=== PATIENT | male | born 1975 | race Caucasian/White ===

== ENCOUNTER → 2016-08-31 | Outpatient (CLI) | payer BC ==
[2016-08-31 20:19] LABS: Basophils % (A) 0 %; CHCM 34.5; Eosinophils # (A) 0.1 k/uL (0-0.7); Eosinophils % (A) 2 %; HDW 2.33; Luc % (Auto) 1; Lymphocytes # (A) 1.7 k/uL (1.0-4.8); Lymphocytes % (A) 23 %; MCH 30.8 pg (25.0-35.0); MCHC 34.1 g/dL (31.0-37.0); MCV 90.4 fL (80.0-100.0); Mean Platelet Volume 7.5; Monocytes # (A) 0.4 k/uL (0-1.0); Monocytes % (A) 6 %; Neutrophils # (A) 5.2 k/uL (1.3-7.7); Neutrophils % (A) 68 %; RBC 4.53 m/uL (4.30-5.90); RDW 13.5 % (11.5-15.5); WBC 7.6 k/uL (3.8-10.6); WBC (Perox) 7.91
[2016-08-31 20:33] LABS: ALT 36 U/L (21-72); AST 29 U/L (17-59); Alkaline Phosphatase 77 U/L (38-126); Anion Gap 11 mmol/L; Blood Urea Nitrogen 20 mg/dL (9-20); Calcium 9.4 mg/dL (8.4-10.2); Carbon Dioxide 27 mmol/L (22-30); Chloride 99 mmol/L (98-107); Cholesterol 129 mg/dL (<200); Glucose 100 mg/dL (74-99); HDL Cholesterol 64 mg/dL (40-60); Non-African American GFR(MDRD) >60 (>60 ml/min/1.73 sqM); Potassium 4.1 mmol/L (3.5-5.1); Sodium 137 mmol/L (137-145); Total Bilirubin 0.4 mg/dL (0.2-1.3); Total Protein 6.7 g/dL (6.3-8.2); Triglycerides 120 mg/dL (<150)
== END ==
LOC: MMGSC 16:40
PROVIDERS: ATTEND Family Medicine
DX: E03.9 Hypothyroidism, unspecified (principal); I10 Essential (primary) hypertension
CPT/HCPCS: 36415; 80053; 80061; 84439; 84443; 85025

== ENCOUNTER → 2017-10-23 | Outpatient (CLI) | payer BC ==
[2017-10-23 07:45] LABS: ALT 32 U/L (21-72); AST 26 U/L (17-59); Albumin 4.5 g/dL (3.5-5.0); Alkaline Phosphatase 59 U/L (38-126); Anion Gap 6 mmol/L; Blood Urea Nitrogen 22 mg/dL (9-20); Calcium 9.7 mg/dL (8.4-10.2); Carbon Dioxide 29 mmol/L (22-30); Chloride 101 mmol/L (98-107); Cholesterol 194 mg/dL (<200); Glucose 107 mg/dL (74-99); HDL Cholesterol 73 mg/dL (40-60); LDL Cholesterol,Calculated 99 mg/dL (0-99); Potassium 4.4 mmol/L (3.5-5.1); Sodium 136 mmol/L (137-145); Total Bilirubin 0.4 mg/dL (0.2-1.3); Total Protein 7.2 g/dL (6.3-8.2); Triglycerides 109 mg/dL (<150)
[2017-10-23 07:55] LABS: T4, Free (Free Thyroxine) 0.24 ng/dL (0.78-2.19)
[2017-10-23 07:58] LABS: Basophils # (A) 0.1 k/uL (0-0.2); Basophils % (A) 1 %; Eosinophils # (A) 0.1 k/uL (0-0.7); Eosinophils % (A) 1 %; HGB 14.7 gm/dL (13.0-17.5); Lymphocytes # (A) 1.8 k/uL (1.0-4.8); Lymphocytes % (A) 20 %; MCH 30.8 pg (25.0-35.0); MCHC 33.5 g/dL (31.0-37.0); Mean Platelet Volume 6.9; Monocytes # (A) 0.5 k/uL (0-1.0); Monocytes % (A) 6 %; Neutrophils # (A) 6.2 k/uL (1.3-7.7); Neutrophils % (A) 71 %; Platelet Count 239 k/uL (150-450); RBC 4.78 m/uL (4.30-5.90); RDW 13.8 % (11.5-15.5); WBC 8.8 k/uL (3.8-10.6)
== END | disposition home or self-care (01) ==
LOC: LABWHC1 06:40
PROVIDERS: ATTEND Family Medicine
DX: Z00.00 Encounter for general adult medical examination without abnormal findings (principal)
CPT/HCPCS: 36415; 80053; 80061; 84439; 84443; 85025

== ENCOUNTER → 2019-05-29 | Outpatient (CLI) | payer BC ==
--- NOTE | 2019-05-29 20:03 | CONS ---
CONSULTATION DATE OF SERVICE: 05/29/2019 This patient is a 43-year-old gentleman who has been evaluated in the sleep center for possible obstructive sleep apnea-hypopnea syndrome. HISTORY OF PRESENT ILLNESS/SLEEP-WAKE EVALUATION: Patient usually goes to bed around 8 or 9 or 10 p.m. and gets up in the morning around 5:15 a.m. on working days and around 8 or 9 a.m. on weekends. No problems with falling asleep, although he has a TV set in the bedroom. He sleeps in different positions with loud snoring and witnessed episodes of stopped breathing during sleep by his . He wakes up from sleep up to 5 times with up 3 episodes of nocturia. He moves his legs during the night and has symptoms of restless legs and also kicking at night. In the morning patient wakes up tired, may feel sleepy during the day. He takes a nap around 3 or 5 p.m. Aline Sleepiness Scale is significantly increased at 13. No history of hypnagogic hallucinations, sleep paralysis or cataplexy. PAST MEDICAL HISTORY: Positive for hypertension, hypothyroidism. PAST SURGICAL HISTORY: Right hip fracture, left hip fracture, left knee surgery. MEDICATIONS: Synthroid, amlodipine. SOCIAL HISTORY: Negative for smoking. Alcohol consumption occasional. FAMILY HISTORY: Hypertension, snoring, diabetes, thyroid problems, and esophageal cancer in his father. REVIEW OF SYSTEMS: Multiple awakenings from sleep, snoring, sleepiness during the day. PHYSICAL EXAMINATION: GENERAL: A pleasant gentleman without distress. VITAL SIGNS: BP 138/85, HR 82, RR 16, height 6 feet 0 inches, weight 288 pounds. Body mass index 38.9. Temperature 98.7, oxygen saturation at room air 99%. HEENT: PERRLA, EOMI. Evaluation of oropharynx showed tongue protrudes midline. Extremely low position of soft palate. Mallampati IV. Some restriction of nasal breathing. NECK: Supple. No JVD. ? thyroid palpable. Wide neck; 18 inches in circumference. LUNGS: Clear to percussion and to auscultation. Good air exchange. No wheezing or rhonchi. HEART: S1, S2 regular. No murmurs, gallops or rubs. ABDOMEN: Obese. EXTREMITIES: No clubbing or cyanosis. IT SYSTEMS MANAGER: Awake, alert, and oriented X3. Cranial nerves 2 to 7 intact. There is no fasciculation or atrophy. noted. No focal deficits observed. IMPRESSION: 1. Loud snoring, witnessed episodes of stopped breathing during sleep, extremely low position of soft palate, Mallampati IV, restriction of nasal breathing, wide neck, sleepiness; obstructive sleep apnea-hypopnea syndrome. 2. History of symptoms of restless legs and kicking at night; possibly periodic limb movement syndrome. 3. Hypothyroidism. 4. Hypertension. 5. Status post right hip fracture. 6. Status post left hip fracture. 7. Status post left knee surgery. PLAN: 1. Home sleep apnea test for evaluation of patient's breathing during sleep. 2. CPAP/BiPAP titration if sleep study confirms obstructive sleep apnea-hypopnea syndrome. 3. Preferable position during sleep on the side. 4. No driving if patient feels any sleepiness. 5. I will see patient for follow up visit to explain results of testing and following plan. Thank you very much for allowing me to participate in the management of your patient. Sincerely, Nathanael Alamo MD, PhD, FAASM Diplomat of [employer] [employer] [facility] [place] MMODL / IJN: [id number] /
== END | disposition home or self-care (01) ==
LOC: SLEEP 14:44
PROVIDERS: ATTEND Internal Medicine
DX: R06.83 Snoring (principal); E03.9 Hypothyroidism, unspecified; I10 Essential (primary) hypertension; Z96.653 Presence of artificial knee joint, bilateral; Z96.652 Presence of left artificial knee joint; Z79.899 Other long term (current) drug therapy
CPT/HCPCS: 99211

== ENCOUNTER → 2020-07-23 | Outpatient (CLI) | payer BC | END | disposition home or self-care (01) | LOC: LABWHC1 16:21 | PROVIDERS: ATTEND Family Medicine | DX: Z20.822 Contact with and (suspected) exposure to COVID-19 (principal) | CPT/HCPCS: U0003; C9803; U0005 ==

== ENCOUNTER 2022-10-14 23:02 | Inpatient (IN) | payer BC, OTHER ==
[2022-10-14] MEDS ORDERED: SODIUM CHLORIDE 0.9% 1,000 ML IV STA (23:27)
[2022-10-14] MEDS ORDERED: THIAMINE 100 MG/ML 2 ML VIAL IM STA (23:29)
[2022-10-14] MEDS ORDERED: LORazepam 2 MG/ML INJ IV STA (23:32)
[2022-10-14] MEDS ORDERED: DIPH,PERTUS(ACELL)TETVAC-LF 0.5 ML VIAL IM ONE (23:36)
--- NOTE | 2022-10-14 23:42 | ED ---
General Adult HPI - General Chief complaint: Alcohol Stated complaint: Alcohol Withdrawl Time Seen by Provider: 10/14/22 23:07 Source: patient, EMS, RN notes reviewed, old records reviewed Mode of arrival: EMS Limitations: no limitations - History of Present Illness Initial comments: Patient is a 47-year-old male with past medical history remarkable for daily alcohol abuse, hypertension, who presents emergency Department after a fall. Patient fell last week as well as recently. His bruising over his forehead and he bit his tongue. States his last was on Sunday and has not been drinking much since. Normally takes a pint of vodka per day. Does endorse a history of alcohol withdrawals. Denies any seizure history. States he is uncertain what made him fall earlier and thinks he may have loss consciousness. He is somewhat confused regarding the fall earlier. States he is having shaking. Has also been having decreased oral intake over the last week or so without any known reason why. Has had less than appetite. Has no other acute complaints at this time. States is not on blood thinners. Denies any obvious injuries from the fall other than his tongue and the forehead bruising. Presents for further evaluation of this time. Denies chest pain, shortness breath, fevers, abdominal pain, nausea, vomiting. - Related Data Allergies Allergy/AdvReac Type Severity Reaction Status Date / Time No Known Allergies Allergy Verified 10/14/22 23:14 Review of Systems ROS Statement: Those systems with pertinent positive or pertinent negative responses have been documented in the HPI. Review of Systems: CONST: Denies fever EYES: Denies blurry vision ENT: Endorses tongue swelling C/V: Denies Chest pain RESP: Denies shortness of breath GI: Denies abdominal pain : Denies dysuria SKIN: Endorses facial pain MSK: Denies joint pain. NEURO: Denies headache ROS Other: All systems not noted in ROS Statement are negative. Past Medical History Past Medical History: Hypertension, Thyroid Disorder History of Any Multi-Drug Resistant Organisms: None Reported Past Surgical History: Orthopedic Surgery Additional Past Surgical History / Comment(s): ankle and knee surgery. Past Psychological History: Anxiety Smoking Status: Former smoker Past Alcohol Use History: Abuse, Daily Past Drug Use History: Marijuana General Exam - General Exam Comments Initial Comments: General: Appears in active alcohol withdrawals with tremors and tongue fasciculations. HEAD: Oozing over the forehead. No obvious hematoma or other injury. No step- offs or deformities of the face. Negative ragland sign. Negative raccoon eyes. EYES: PERRLA, EOMI, conjunctiva normal, no discharge. Pupils 3 mm equal bilaterally. ENT: Hearing grossly intact. Patient has left-sided tongue edema secondary to him biting it. Small abrasion as well. RESPIRATORY: Clear breath sounds bilaterally. No wheezes, rales, or rhonchi. C/V: Mild tachycardia with regular rhythm. S1 and S2 auscultated, no edema, peripheral pulses 2+ and intact throughout ABD: Abd is soft, nontender, nondistended EXT: Normal range of motion, no obvious deformity. No midline spinal tenderness palpation of the cervical, thoracic, lumbar spines. Pelvis is stable. No obvious tenderness to palpation of the extremities. SKIN: No rashes or lesions observed on exposed skin. NEURO: Alert and oriented x 4. Cranial nerves II-XII intact. No focal sensory or strength deficits. Patient does have tongue fasciculations and generalized tremors. CIWA is 9-10. Limitations: no limitations Course Vital Signs 10/14/22 10/15/22 10/15/22 23:05 00:14 01:00 Temperature 97.8 F Pulse Rate 105 H 92 92 Respiratory 18 18 18 Rate Blood Pressure 153/114 147/111 148/109 O2 Sat by Pulse 98 99 99 Oximetry Medical Decision Making - Medical Decision Making Was pt. sent in by a medical professional or institution (Dr. PA, [facility], urgent care, hospital, or senior care...) When possible be specific @ -No Did you speak to anyone other than the patient for history (EMS, parent, family, police, friend...)? What history was obtained from this source @ -No Did you review nursing and triage notes (agree or disagree)? Why? @ -I reviewed and agree with nursing and triage notes Were old charts reviewed (outside hosp., previous admission, EMS record, old EKG, old radiological studies, urgent care reports/EKG's, senior care records)? Report findings @ -No old charts were reviewed Differential Diagnosis (chest pain, altered mental status, abdominal pain women, abdominal pain men, vaginal bleeding, weakness, fever, dyspnea, syncope, headache, dizziness, GI bleed, back pain, seizure, CVA, palpatations, mental health, musculoskeletal)? @ -Fall, intracranial injury, alcohol withdrawals, alcohol withdrawal seizure, syncopal episode, mechanical fall, dehydration, infection. This list is not all-inclusive. EKG interpreted by me (3pts min.). @ -As above X-rays interpreted by me (1pt min.). @ -Chest x-rays reveal no obvious deformity, pneumothorax. Radiology does see possible left sixth rib abnormality but the patient has no pain at the site. Pelvis x-ray reveals no obvious acute traumatic injury. CT interpreted by me (1pt min.). @ -Face CT shows no obvious acute fracture of the facial bones. CT brain reveals no obvious intracranial injury. Cervical spine CT does reveal anterior corner fractures involving the anterior and inferior endplates of third and fourth vertebral bodies as well as possible C6 fracture as well in the right lamina. Patient also has nondisplaced posterior medial right first and second rib fractures. Radiology corroborated these findings. U/S interpreted by me (1pt. min.). @ -None done What testing was considered but not performed or refused? (CT, X-rays, U/S, labs)? Why? @ -None What meds were considered but not given or refused? Why? @ -Offered analgesic medications which were declined as the patient is not in any acute pain. Did you discuss the management of the patient with other professionals (professionals i.e. , PA, [facility], lab, RT, psych nurse, transition social worker, chief commercial officer, teacher, liaison officer, case preparer and liner)? Give summary @ -I spoke with orthopedic surgery, Dr. Orellana who accepted the consult but due to the patient's alcohol withdrawals requested patient be made a medicine admission and they be a consult which I believe is reasonable. Was in agreement with the plan for cervical collar. I discussed the case with Dr. Zamarripa who accepted the admission. Was smoking cessation discussed for >3mins.? @ -No Was critical care preformed (if so, how long)? @ -Yes, 35 minutes. Were there social determinants of health that impacted care today? How? (Homelessness, low income, unemployed, alcoholism, drug addiction, transport ation, low edu. Level, literacy, decrease access to med. care, correction, rehab)? @ -No Was there de-escalation of care discussed even if they declined (Discuss DNR or withdrawal of care, Hospice)? DNR status @ -No What co-morbidities impacted this encounter? (DM, HTN, Smoking, COPD, CAD, Cancer, CVA, ARF, Chemo, Hep., AIDS, mental health diagnosis, sleep apnea, morbid obesity)? @ -None Was patient admitted / discharged? Hospital course, mention meds given and route, prescriptions, significant lab abnormalities, going to OR and other pertinent info. @ -Based on the patient's presentation and physical exam, and it does appear he is going through alcohol withdrawals. Had a fall at home of unknown etiology. Patient does not meet criteria for trauma activation. We will obtain syncopal workup as well as lactic acid to evaluate for signs of possible seizure that he may have had. We also obtain CT imaging the brain, C-spine, facial bones. Tetanus will be updated. He will receive a liter fluid. He will receive 1 mg of IV Ativan for his alcohol withdrawal symptoms. He was in agreement this plan. Bowel sounds are remarkable for mild tachycardia but otherwise within acceptable limits. EKG showed no signs of acute ischemia. Patient's imaging returned remarkable for no acute intracranial injury, pelvis injury the patient does have some nondisplaced rib fractures which are nontender on palpation. Patient also has cervical spine corner fractures at C3, C4, and possible fracture of the C6 right lamina. I reevaluated the patient and he has no pain in his cervical spine but he will have a rigid cervical collar placed. He has no neuro deficits at this time. Following the Ativan his withdrawal symptoms are improved. Patient was placed in a cervical collar. He has no pain in his cervical spine or at the location of the rib fractures at this time. Declines analgesic medications. Patient's labs returned remarkable for a thrombocytopenia of 77 likely related to his chronic condition. Mild dehydration with an elevated lactic acid of 2.8, sodium of 1:30, clear to 93 which were decreased. Mildly elevated bilirubin of 1.7 as well as LFTs secondary to alcohol abuse. Serum alcohol is undetectable. Viral swabs negative. I updated the patient. He remains in a cervical collar at this time. I discussed she will be admitted for alcohol withdrawals. He was in agreement with this plan. I discussed the case initially with Dr. Orellana of orthopedics due to the cervical spine injury as well as the rib fractures. Was in agreement that is the patient has no symptoms related to the rib fractures just to monitor at this time. In terms of the cervical fracture, was in agreement with the cervical collar and patient remaining here but he did request an admission to medicine as the patient has alcohol withdrawals which I believe is reasonable at this time. I spoke with the medicine attending manager relationship for the [facility], Dr. Zamarripa who accepted the patient. Patient admitted in stable condition. Undiagnosed new problem with uncertain prognosis? @ -No Drug Therapy requiring intensive monitoring for toxicity (Heparin, Nitro, Insulin, Cardizem)? @ -No Were any procedures done? @ -No Diagnosis/symptom? @ -Fall, anterior corner fractions of C4 and C3, possible fractures right lamina C6, right-sided nondisplaced rib fractures Acute, or Chronic, or Acute on Chronic? @ -Acute Uncomplicated (without systemic symptoms) or Complicated (systemic symptoms)? @ -Complicated Side effects of treatment? @ -none Exacerbation, Progression, or Severe Exacerbation] @ -no Poses a threat to life or bodily function? @ -Yes Diagnosis/symptom? @ -Alcohol withdrawals Acute, or Chronic, or Acute on Chronic? @ -Acute Uncomplicated (without systemic symptoms) or Complicated (systemic symptoms)? @ -Complicated Side effects of treatment? @ -none Exacerbation, Progression, or Severe Exacerbation] @ -no Poses a threat to life or bodily function? @ -Yes - Lab Data Result diagrams: 10/14/22 23:05 10/14/22 23:05 Lab Results 10/14/22 10/14/22 10/14/22 Range/Units 23:05 23:05 23:05 WBC 4.8 (3.8-10.6) k/uL RBC 3.70 L (4.30-5.90) m/uL Hgb 11.9 L (13.0-17.5) gm/dL Hct 35.6 L (39.0-53.0) % MCV 96.2 (80.0-100.0) fL MCH 32.2 (25.0-35.0) pg MCHC 33.5 (31.0-37.0) g/dL RDW 16.0 H (11.5-15.5) % Plt Count 77 L (150-450) k/uL MPV 9.0 Neutrophils % 84 % Lymphocytes % 9 % Monocytes % 5 % Eosinophils % 1 % Basophils % 0 % Neutrophils # 4.1 (1.3-7.7) k/uL Lymphocytes # 0.4 L (1.0-4.8) k/uL Monocytes # 0.3 (0-1.0) k/uL Eosinophils # 0.0 (0-0.7) k/uL Basophils # 0.0 (0-0.2) k/uL Manual Slide Review Performed Anisocytosis Slight PT 10.3 (9.0-12.0) sec INR 1.0 (<1.2) APTT 22.0 (22.0-30.0) sec Sodium 130 L (137-145) mmol/L Potassium 3.8 (3.5-5.1) mmol/L Chloride 93 L (98-107) mmol/L Carbon Dioxide 26 (22-30) mmol/L Anion Gap 11 mmol/L BUN 13 (9-20) mg/dL Creatinine 1.03 (0.66-1.25) mg/dL Est GFR (CKD-EPI)AfAm >90 (>60 ml/min/1.73 sqM) Est GFR (CKD-EPI)NonAf 87 (>60 ml/min/1.73 sqM) Glucose 200 H (74-99) mg/dL Plasma Lactic Acid Bobby (0.7-2.0) mmol/L Calcium 8.8 (8.4-10.2) mg/dL Magnesium 1.6 (1.6-2.3) mg/dL Total Bilirubin 1.7 H (0.2-1.3) mg/dL AST 92 H (17-59) U/L ALT 51 H (4-49) U/L Alkaline Phosphatase 125 (38-126) U/L Total Protein 6.9 (6.3-8.2) g/dL Albumin 4.2 (3.5-5.0) g/dL Serum Alcohol <10 mg/dL Influenza Type A (PCR) (Not Detectd) Influenza Type B (PCR) (Not Detectd) RSV (PCR) (Not Detectd) SARS-CoV-2 (PCR) (Not Detectd) 10/14/22 10/14/22 Range/Units 23:53 23:53 WBC (3.8-10.6) k/uL RBC (4.30-5.90) m/uL Hgb (13.0-17.5) gm/dL Hct (39.0-53.0) % MCV (80.0-100.0) fL MCH (25.0-35.0) pg MCHC (31.0-37.0) g/dL RDW (11.5-15.5) % Plt Count (150-450) k/uL MPV Neutrophils % % Lymphocytes % % Monocytes % % Eosinophils % % Basophils % % Neutrophils # (1.3-7.7) k/uL Lymphocytes # (1.0-4.8) k/uL Monocytes # (0-1.0) k/uL Eosinophils # (0-0.7) k/uL Basophils # (0-0.2) k/uL Manual Slide Review Anisocytosis PT (9.0-12.0) sec INR (<1.2) APTT (22.0-30.0) sec Sodium (137-145) mmol/L Potassium (3.5-5.1) mmol/L Chloride (98-107) mmol/L Carbon Dioxide (22-30) mmol/L Anion Gap mmol/L BUN (9-20) mg/dL Creatinine (0.66-1.25) mg/dL Est GFR (CKD-EPI)AfAm (>60 ml/min/1.73 sqM) Est GFR (CKD-EPI)NonAf (>60 ml/min/1.73 sqM) Glucose (74-99) mg/dL Plasma Lactic Acid Bobby 2.8 H* (0.7-2.0) mmol/L Calcium (8.4-10.2) mg/dL Magnesium (1.6-2.3) mg/dL Total Bilirubin (0.2-1.3) mg/dL AST (17-59) U/L ALT (4-49) U/L Alkaline Phosphatase (38-126) U/L Total Protein (6.3-8.2) g/dL Albumin (3.5-5.0) g/dL Serum Alcohol mg/dL Influenza Type A (PCR) Not Detected (Not Detectd) Influenza Type B (PCR) Not Detected (Not Detectd) RSV (PCR) Not Detected (Not Detectd) SARS-CoV-2 (PCR) Not Detected (Not Detectd) - EKG Data -: EKG Interpreted by [place] EKG Comments: 12-lead Electrocardiogram Interpretation Note EKG was reviewed and interpreted by myself. 12-lead ECG performed at 2310 is interpreted by me as revealing sinus tachycardia at a rate of 102 beats per minute. [place] is normal. UT interval is 163 ms, QRS duration is 94 ms, QTc is 430 ms.. There were no ST or T wave abnormalities to suggest myocardial ischemia or injury. R wave progression across the precordium was satisfactory. By my interpretation this EKG is non-diagnostic for acute ischemia. Critical Care Time Critical Care Time: Yes Total Critical Care Time: 35 Disposition Clinical Impression: Alcohol withdrawal, Dehydration, Cervical spine fracture, Fall, Rib fractures Disposition: ADMITTED IP TO THIS HOSP Condition: Stable Referrals: Amena Costello [Nurse Contract Administration Specialist] - 1-2 days Time of Disposition: 01:18
[2022-10-15 00:20] LABS: AST 92 U/L (17-59); African American GFR (CKD) >90 (>60 ml/min/1.73 sqM); Albumin 4.2 g/dL (3.5-5.0); Alcohol <10 mg/dL; Alkaline Phosphatase 125 U/L (38-126); Anion Gap 11 mmol/L; Blood Urea Nitrogen 13 mg/dL (9-20); Calcium 8.8 mg/dL (8.4-10.2); Carbon Dioxide 26 mmol/L (22-30); Chloride 93 mmol/L (98-107); Glucose 200 mg/dL (74-99); Magnesium 1.6 mg/dL (1.6-2.3); Non-African American GFR(CKD) 87 (>60 ml/min/1.73 sqM); Potassium 3.8 mmol/L (3.5-5.1); Sodium 130 mmol/L (137-145); Total Bilirubin 1.7 mg/dL (0.2-1.3); Total Protein 6.9 g/dL (6.3-8.2)
--- NOTE | 2022-10-15 00:23 | CT ---
EXAM: CT Head Without Intravenous Contrast CLINICAL HISTORY: Fall. Weakness TECHNIQUE: Axial computed tomography images of the head/brain without intravenous contrast. CTDI is 25.9 mGy and DLP is 755.3 mGy-cm. This CT exam was performed using one or more of the following dose reduction techniques: automated exposure control, adjustment of the mA and/or kV according to patient size, and/or use of iterative reconstruction technique. COMPARISON: No relevant prior studies available. FINDINGS: Brain: No intracranial hemorrhage. No significant mass effect. No significant white matter disease. Ventricles: Unremarkable. No ventriculomegaly. Bones/joints: Unremarkable. No acute fracture. Soft tissues: Subtle superficial scalp contusive changes overlying the left parietal region. No radiopaque foreign body or subcutaneous emphysema. Sinuses: Unremarkable as visualized. No acute sinusitis. Mastoid air cells: Unremarkable as visualized. No mastoid effusion. IMPRESSION: 1. No acute intracranial process identified. 2. Subtle superficial scalp contusive changes overlying the left parietal region. No skull fracture. EXAM: CT Cervical Spine Without Intravenous Contrast CLINICAL HISTORY: Fall. Weakness TECHNIQUE: Axial computed tomography images of the cervical spine without intravenous contrast. CTDI is 20 mGy and DLP is 560.3 mGy-cm. This CT exam was performed using one or more of the following dose reduction techniques: automated exposure control, adjustment of the mA and/or kV according to patient size, and/or use of iterative reconstruction technique. COMPARISON: No relevant prior studies available. FINDINGS: Limitations: There is mild motion artifact, which mildly degrades image quality on multiple image slices. Vertebrae: There are small anterior corner fractures involving the anterior and inferior endplate of the third and fourth vertebral bodies. The avulsion fracture is measured 2 mm at C3 and 3-4 mm at C4 (series 303; images 38-44). The vertebral bodies are otherwise intact. No acute compression fracture. Mild reversal of the normal cervical lordosis No anterolisthesis or retrolisthesis is identified. The facet joints are well aligned without subluxation or dislocation. There is a subtle lucency noted vertically in the right lamina of the C6 left lamina (series 301; images 73-78). The pedicles, transverse processes, spinous processes and remaining lamina are intact. Discs/spinal canal/neural foramina: Disc space narrowing with marginal hypertrophic changes at several levels, most notable at C4-C5 and C5-C6. No acute findings. No osseous spinal canal stenosis. Ribs: There are nondisplaced posterior medial right first and second rib fractures at the costovertebral angle (series 301; images 83-85 and images 92-95). Soft tissues: Unremarkable. Pleural space: No definite pneumothorax noted in the included lung apices. IMPRESSION: 1. There are small anterior corner fractures involving the anterior and inferior endplate of the third and fourth vertebral bodies. The avulsion fracture is measured 2 mm at C3 and 3-4 mm at C4. The vertebral bodies are otherwise intact. No significant adjacent soft tissue swelling. 2. There is a subtle lucency noted vertically in the right lamina of the C6 left lamina (series 301; images 73-78). A nondisplaced fracture is not excluded in this region. The remaining pedicles, transverse processes and spinous processes are intact. 3. There are nondisplaced posterior medial right first and second rib fractures at the costovertebral angle (series 301; images 83-85 and images 92-95). <MYCVCSECTION> Communications: 10/15/22 00:37 Verify Receipt Verified receipt with RUTH Duarte, given to Dr. Daniel on 10/15 00:36 (-04:00)
[2022-10-15 00:26] LABS: ALT 51 U/L (4-49)
--- NOTE | 2022-10-15 00:27 | XR ---
EXAM: XR Pelvis, 1 or 2 Views CLINICAL HISTORY: Fall TECHNIQUE: Frontal view of the pelvis. COMPARISON: No relevant prior studies available. FINDINGS: Bones/joints: Incidental prior ORIF of the proximal right femur. No acute fracture. No dislocation. Soft tissues: Unremarkable. IMPRESSION: No acute osseous traumatic injury identified involving the pelvis.
--- NOTE | 2022-10-15 00:27 | CT ---
EXAM: CT Maxillofacial Without Intravenous Contrast CLINICAL HISTORY: ITS.REASON CT Reason: fall TECHNIQUE: Axial computed tomography images of the face without intravenous contrast. CTDI is 20 mGy and DLP is 560.3 mGy-cm. This CT exam was performed using one or more of the following dose reduction techniques: automated exposure control, adjustment of the mA and/or kV according to patient size, and/or use of iterative reconstruction technique. COMPARISON: No relevant prior studies available. FINDINGS: Bones/joints: The osseous maxillofacial structures are intact. The nasal bones are maintained. The mandible is intact and is well aligned. No acute fracture. Soft tissues: Unremarkable. Orbits: Unremarkable. Sinuses: Minimal mucosal thickening involving the inferior maxillary sinuses. No traumatic effusions. No air-fluid levels. IMPRESSION: No significant acute traumatic injury identified involving the maxillofacial region.
--- NOTE | 2022-10-15 00:30 | XR ---
EXAM: XR Chest, 2 Views CLINICAL HISTORY: Fall. Weakness TECHNIQUE: Frontal and lateral views of the chest. COMPARISON: No relevant prior studies available. FINDINGS: Lungs: Unremarkable. No consolidation. The pulmonary vasculature demonstrates no significant radiographic abnormality. Pleural space: Unremarkable. No pneumothorax. No large pleural effusion. Heart: The cardiac silhouette is within normal limits. Mediastinum: No evidence for mediastinal widening. The mediastinal contours are unremarkable. The trachea is midline. Bones/joints: There is subtle rib irregularity laterally at left sixth rib level. The osseous structures are otherwise negative radiographically. IMPRESSION: There is subtle rib irregularity laterally at left sixth rib level. While this may represent a chronic process, an acute traumatic injury is not excluded in this region. No pulmonary contusive injury, pleural effusion or pneumothorax identified. Consider further cross-sectional imaging, as clinically appropriate.
[2022-10-15 00:49] LABS: Prothrombin Time 10.3 sec (9.0-12.0)
[2022-10-15 00:55] LABS: Anisocytosis Slight; Basophils % (A) 0 %; Eosinophils % (A) 1 %; HCT 35.6 % (39.0-53.0); HGB 11.9 gm/dL (13.0-17.5); Lymphocytes # (A) 0.4 k/uL (1.0-4.8); Lymphocytes % (A) 9 %; MCH 32.2 pg (25.0-35.0); MCHC 33.5 g/dL (31.0-37.0); MCV 96.2 fL (80.0-100.0); Monocytes # (A) 0.3 k/uL (0-1.0); Monocytes % (A) 5 %; Neutrophils # (A) 4.1 k/uL (1.3-7.7); Neutrophils % (A) 84 %; WBC 4.8 k/uL (3.8-10.6)
[2022-10-15 01:10] LABS: Platelet Count 77 k/uL (150-450)
[2022-10-15] MEDS ORDERED: SODIUM CHLORIDE 0.9% 1,000 ML IV STA ×2 (01:11→01:19)
[2022-10-15] MEDS: LORazepam 2 MG/ML INJ IV PRN ×10 (01:19→23:35)
[2022-10-15] MEDS ORDERED: NALOXONE 0.4 MG/ML 1 ML VIAL IV PRN (01:23)
[2022-10-15 04:36] LABS: Appearance,Urine Clear (Clear); Bilirubin,Urine Negative (Negative); Blood,Urine Negative (Negative); Color,Urine Yellow; Glucose,Urine (UA) Negative (Negative); Hyaline Casts,Urine 31 /lpf (0-2); Ketones,Urine 1+ (Negative); Leukocyte Esterase,Urine Negative (Negative); Mucus,Urine Occasional /hpf; Nitrite,Urine Negative (Negative); PH, Urine 6.5 (5.0-8.0); Protein,Urine 1+ (Negative); RBC,Urine 1 /hpf (0-5); Specific Gravity,Urine 1.021 (1.001-1.035); Squamous Epithelial Cell,Urine <1 /hpf (0-4); WBC,Urine 1 /hpf (0-5)
--- NOTE | 2022-10-15 06:21 | P.HPIM ---
History of Present Illness H&P Date: 10/15/22 Chief Complaint: alcohol withdrawal 47 year old male with alcohol abuse he is coming in due to worsening withdrawal symptoms , repeated falls and shakiness he was sober for 3 months, then relapsed about few weeks ago, and admits to drinking 0.5 -slightly more than 1 pint everyday. he reports multiple falls , with worst one last Sunday when he tripped with a coffee table. he is not sure if he had another fall today. he is very shaky in the room, reports going through hard time due to divorce. he hit his face last Sunday, and bit his tongue, family denied any seizure like activity. he denies any history of seizures. he is not in any pain at this time. Pertinent positives as noted in HPI. All other systems were reviewed and are negative PMHx alcohol abuse , hypertension on exam Constitutional: No acute distress, conversant, shaky Eyes: Anicteric sclerae, moist conjunctiva, Pupils equal round reactive to light ENMT: NC/ bruise small over his forehead, Oropharynx clear, no erythema, or exudates Neck: hard neck collar in place Lungs: Clear to auscultation Clear to percussion Normal respiratory effort, no accessory muscle use Cardiovascular: Heart regular in rate and rhythm, No murmurs, gallops, or rubs No peripheral edema Abdominal: Soft Nontender, no guarding, rebound or rigidity Abdomen moving with respiration Normoactive bowel sounds No hepatomegaly, No splenomegaly No palpable mass No abdominal wall hernia noted Skin: bruising over the left lower rib cage, non tender Extremities: No digital cyanosis No clubbing Pedal pulses intact and symmetrical Radial pulses intact and symmetrical No calf tenderness Psychiatric: Alert and oriented to person, place and time Appropriate affect Neuro Muscles Strength 5/5 in all 4 extremities Sensation to light touch grossly present throughout Cranial nerves II-XII grossly intact Lymphatics: no palpable cervical or supraclavicular lymph nodes Past Medical History Past Medical History: Hypertension, Thyroid Disorder History of Any Multi-Drug Resistant Organisms: None Reported Past Surgical History: Orthopedic Surgery Additional Past Surgical History / Comment(s): ankle and knee surgery. Past Psychological History: Anxiety Smoking Status: Former smoker Past Alcohol Use History: Abuse, Daily Past Drug Use History: Marijuana Medications and Allergies Allergies Allergy/AdvReac Type Severity Reaction Status Date / Time No Known Allergies Allergy Verified 10/14/22 23:14 Physical Exam Vitals: Vital Signs Temp Pulse Resp BP Pulse Ox 10/15/22 03:00 91 18 153/102 99 10/15/22 01:00 92 18 148/109 99 10/15/22 00:14 92 18 147/111 99 10/14/22 23:05 97.8 F 105 H 18 153/114 98 Intake and Output 10/14/22 10/14/22 10/15/22 14:59 22:59 06:59 Other: Weight 104.326 kg Results CBC & Chem 7: 10/14/22 23:05 10/14/22 23:05 Labs: Abnormal Lab Results - Last 24 Hours (Table) 10/14/22 10/14/22 10/14/22 Range/Units 23:05 23:05 23:53 RBC 3.70 L (4.30-5.90) m/uL Hgb 11.9 L (13.0-17.5) gm/dL Hct 35.6 L (39.0-53.0) % RDW 16.0 H (11.5-15.5) % Plt Count 77 L (150-450) k/uL Lymphocytes # 0.4 L (1.0-4.8) k/uL Sodium 130 L (137-145) mmol/L Chloride 93 L (98-107) mmol/L Glucose 200 H (74-99) mg/dL Plasma Lactic Acid Bobby 2.8 H* (0.7-2.0) mmol/L Total Bilirubin 1.7 H (0.2-1.3) mg/dL AST 92 H (17-59) U/L ALT 51 H (4-49) U/L Urine Protein (Negative) Urine Ketones (Negative) Hyaline Casts (0-2) /lpf Urine Mucus (None) /hpf 10/15/22 Range/Units 04:11 RBC (4.30-5.90) m/uL Hgb (13.0-17.5) gm/dL Hct (39.0-53.0) % RDW (11.5-15.5) % Plt Count (150-450) k/uL Lymphocytes # (1.0-4.8) k/uL Sodium (137-145) mmol/L Chloride (98-107) mmol/L Glucose (74-99) mg/dL Plasma Lactic Acid Bobby (0.7-2.0) mmol/L Total Bilirubin (0.2-1.3) mg/dL AST (17-59) U/L ALT (4-49) U/L Urine Protein 1+ H (Negative) Urine Ketones 1+ H (Negative) Hyaline Casts 31 H (0-2) /lpf Urine Mucus Occasional H (None) /hpf Assessment and Plan Assessment: 47 year old male with alcohol abuse, presenting with alcohol withdrawal symptoms and multiple falls over last couple weeks. I discussed the case with ED doc , and I accepted the admission for alcohol withdrawal with anticipated length of stay > 2 midnights alcohol withdrawal Benzo per ciwa thiamine daily IVF hydration with normal saline seizure precautions fall precautions transaminitis secondary to alcohol abuse monitor liver enzymes lactic acidosis , continue with IVF hydration , follow up levels thrombocytopenia secondary to alcohol abuse mild anemia 11.9 , denies any bleeding continue to monitor multiple rib and cervical vertebral fractures non displaced posterior medial right 1st and 2nd rib fracture at the costoverteb ral angle small anterior corner fractures over the anterior and inferior endplate of 3rd and 4th hard neck collar in place CT brain and CT face no acute pathology ortho spine consult full code DVT PPX mechanical secondry to thrombocytopenia renal function unremarkable Na 130 , K 3.8 , BUN 13 , Cr 1.03
[2022-10-15] MEDS: THIAMINE 100 MG TAB PO SCH (10:25)
[2022-10-15] MEDS ORDERED: hydrOXYzine HCL 25 MG TAB PO PRN (11:14)
[2022-10-15] MEDS ORDERED: traZODone HCL 50 MG TAB PO PRN (11:14)
[2022-10-15] MEDS ORDERED: NON FORMULARY DRUG (Amlodipine Besylate/Benazepril [Lotrel 10-20 Mg Capsule] 1 EACH Capsul PO SCH (11:15)
[2022-10-15] MEDS: lisinopriL 20 MG TAB PO SCH (12:27)
[2022-10-15] MEDS: amLODIPine 10 MG TAB PO SCH (12:27)
[2022-10-15] MEDS: LEVOTHYROXINE 100 MCG TAB PO SCH (12:27)
--- NOTE | 2022-10-15 18:35 | P.CNOR ---
History of Present Illness - [facility] Consult date: 10/15/22 Consult reason: fracture (Cervical) History of present illness: Patient is a 47-year-old male with past medical history remarkable for daily alcohol abuse, hypertension, who presents emergency Department after a fall. Patient fell last week as well. He states that he was not seen after the first fall. He Hit his face in the first fall last week and when he fell last night he bit his tongue. States his last drink was on Sunday and has not been drinking much since. Normally drinks a pint of vodka per day. Does endorse a history of alcohol withdrawals. Denies any seizure history. States he is uncertain what made him fall earlier and thinks he may have loss consciousness. He is somewhat confused regarding the fall earlier. States he is having shaking. Has also been having decreased oral intake over the last week or so without any known reason why. Has no other acute complaints at this time. Leon crum is not on blood thinners. Denies any obvious injuries from the fall other than his tongue and the forehead bruising. We are consulted for orthopedic spine evaluation of fractures seen on his cervical CT scan. Past Medical History Past Medical History: Hypertension, Thyroid Disorder History of Any Multi-Drug Resistant Organisms: None Reported Past Surgical History: Orthopedic Surgery Additional Past Surgical History / Comment(s): ankle and knee surgery. Past Psychological History: Anxiety Smoking Status: Former smoker Past Alcohol Use History: Abuse, Daily Past Drug Use History: Marijuana Medications and Allergies Home Medications Medication Instructions Recorded Confirmed Type Levothyroxine Sodium [Synthroid] 200 mcg PO DAILY 10/15/22 10/15/22 History amLODIPine BESYLATE/BENAZEPRIL 1 cap PO DAILY 10/15/22 10/15/22 History [Lotrel 10-20 mg Capsule] hydrOXYzine HCL [Atarax] 25 mg PO TID PRN 10/15/22 10/15/22 History traZODone HCL [Desyrel] 50 mg PO HS PRN 10/15/22 10/15/22 History Allergies Allergy/AdvReac Type Severity Reaction Status Date / Time No Known Allergies Allergy Verified 10/15/22 10:49 Physical Examination This is a pleasant 47-year-old male in no acute distress. He appears a bit restless and is shaking. Exam of the head and neck reveals a hard cervical collar in place. There is bruising about his face. His tongue is significantly swollen and ecchymotic. He is having a difficult time with speech secondary to his tongue swelling. He is having no posterior cervical tenderness or paraspinal tenderness. Exam of the upper extremities reveals no obvious deformity. He has full shoulder, elbow, wrist and finger motion bilaterally. There are no neurologic deficits noted on exam. He has an uncontrollable shake to his upper extremities with and without active motion. Exam of the lower extremities reveals no obvious deformity. He can lift each leg off the bed independently. He has full foot and ankle motion bilaterally. Neurovascular status to the lower extremities is intact. Results CT scan of the cervical spine reveals anterior inferior fractures to C3 and C4. No other fracture noted. There are degenerative changes throughout the cervical spine. - Labs Labs: Abnormal Lab Results - Last 24 Hours (Table) 10/14/22 10/14/22 10/14/22 Range/Units 23:05 23:05 23:53 RBC 3.70 L (4.30-5.90) m/uL Hgb 11.9 L (13.0-17.5) gm/dL Hct 35.6 L (39.0-53.0) % RDW 16.0 H (11.5-15.5) % Plt Count 77 L (150-450) k/uL Lymphocytes # 0.4 L (1.0-4.8) k/uL Sodium 130 L (137-145) mmol/L Chloride 93 L (98-107) mmol/L Glucose 200 H (74-99) mg/dL Plasma Lactic Acid Bobby 2.8 H* (0.7-2.0) mmol/L Total Bilirubin 1.7 H (0.2-1.3) mg/dL AST 92 H (17-59) U/L ALT 51 H (4-49) U/L Urine Protein (Negative) Urine Ketones (Negative) Hyaline Casts (0-2) /lpf Urine Mucus (None) /hpf 10/15/22 Range/Units 04:11 RBC (4.30-5.90) m/uL Hgb (13.0-17.5) gm/dL Hct (39.0-53.0) % RDW (11.5-15.5) % Plt Count (150-450) k/uL Lymphocytes # (1.0-4.8) k/uL Sodium (137-145) mmol/L Chloride (98-107) mmol/L Glucose (74-99) mg/dL Plasma Lactic Acid Bobby (0.7-2.0) mmol/L Total Bilirubin (0.2-1.3) mg/dL AST (17-59) U/L ALT (4-49) U/L Urine Protein 1+ H (Negative) Urine Ketones 1+ H (Negative) Hyaline Casts 31 H (0-2) /lpf Urine Mucus Occasional H (None) /hpf H & H 10/14/22 Range/Units 23:05 Hgb 11.9 L (13.0-17.5) gm/dL Hct 35.6 L (39.0-53.0) % Coagulation 10/14/22 Range/Units 23:05 INR 1.0 (<1.2) Result Diagrams: 10/14/22 23:05 10/14/22 23:05 Assessment and Plan (1) Alcohol withdrawal Current Visit: Yes Status: Acute Code(s): F10.939 - ALCOHOL USE, UNSPECIFIED WITH WITHDRAWAL, UNSPECIFIED SNOMED Code(s): 905031983 (2) Cervical spine fracture Current Visit: Yes Status: Acute Code(s): S12.9XXA - FRACTURE OF NECK, UNSPECIFIED, INITIAL ENCOUNTER SNOMED Code(s): 324072008 (3) Dehydration Current Visit: Yes Status: Acute Code(s): E86.0 - DEHYDRATION SNOMED Code(s): 43259282 (4) Fall Current Visit: Yes Status: Acute Code(s): W19.XXXA - UNSPECIFIED FALL, INITIAL ENCOUNTER SNOMED Code(s): 2067611 Plan: The clinical and x-ray findings are discussed with the patient. The case is reviewed with Dr. Yu. It is recommended he continue in the hard collar. He is to avoid any aggressive activities. We will continue to follow.
[2022-10-15] MEDS: MORPHINE SULFATE 4 MG/ML SYRINGE IV PRN (20:58)
--- NOTE | 2022-10-15 23:11 | P.MHFACE ---
Face to Face Restrain/Seclus - Evaluation Patient's Immediate Situation: Endangers self safety Patient's Reaction to the Intervention: Appropriate Patient's Medical & Behavioral Condition: Awake, Follows directions, Anxious Need to Continue or Terminate Restraint or Seclusion: Continue Face to Face Eval of Restraint Date: 10/15/22 Face to Face Eval of Restraint Time: 22:35
[2022-10-16] MEDS: LORazepam 2 MG/ML INJ IV PRN ×3 (00:43→08:19)
[2022-10-16] MEDS ORDERED: MD COMMUNICATION TO PHARMACY 1 EACH MISC PO PRN (01:45)
--- NOTE | 2022-10-16 05:49 | P.CNPUL ---
History of Present Illness Consult date: 10/16/22 Requesting physician: Vasile Zamarripa Reason for consult: other (ICU management) Chief complaint: ETOH withdrawal History of present illness: I am seeing this patient in new consultation today 10/16/2022 for suspected acute alcohol withdrawal. Patient is a 47-year-old male with past medical hi story significant for alcoholism, frequent falls, hypertension, hypothyroidism. Patient is currently going through acute alcohol withdrawal, and is a poor historian. Apparently, the patient was found down on the ground, after a fall, by EMS on October 14. He reportedly is not on any anticoagulants. The patient reportedly drinks a pint of vodka per day. There are discrepancies of when his last drink was. Patient had an extensive evaluation on arrival including a head/cervical spine CT which demonstrated small anterior corner fractures involving the anterior and inferior endplate of the third and fourth vertebral bodies. The avulsion fracture is measured 2 mm at C3 and 3-4 mm at C4. The maryanne tebral bodies are otherwise intact. There was also several lucency noted particularly in the right lamina of the C6. A nondisplaced fracture was not excluded. There was a small superficial scalp contusion overlying the left parietal region. No acute intracranial process. There were also nondisplaced posterior medial right first and second rib fractures at the costovertebral angle. Patient is currently lying in bed, sleeping on room air, in a hard c- collar. No surgical intervention planned at this point. The patient reportedly started to develop delirium tremens, requiring multiple doses of Ativan. It looks like he's received a total of 12 mg of Ativan within the last 24 hours. He is also on Librium. He is in soft restraints. There was reportedly concern that the patient may need to be transferred to the intensive care unit on Precedex. He appears calm and sleeping on my evaluation. CBC on arrival shows a hemoglobin of 11.9, hematocrit 35.6, platelets 77. BMP shows sodium 130, potassium 3.8, chloride 93, serum bicarb 26, BUN 13, creatinine 1.03, glucose 200. No IV maintenance fluids infusing. Lactate was elevated at 2.8 and is down to 0.7. AST and ALT are mildly elevated. Negative for influenza, RSV, COVID- 19. Serum alcohol level was less than 10 on arrival. We will monitor the patient intensive care unit, as he will likely need frequent doses of Ativan and close monitoring. Review of Systems ROS unobtainable: due to mental status Past Medical History Past Medical History: Hypertension, Thyroid Disorder History of Any Multi-Drug Resistant Organisms: None Reported Past Surgical History: Orthopedic Surgery Additional Past Surgical History / Comment(s): ankle and knee surgery. Past Psychological History: Anxiety Smoking Status: Former smoker Past Alcohol Use History: Abuse, Daily Past Drug Use History: Marijuana Medications and Allergies Home Medications Medication Instructions Recorded Confirmed Type Levothyroxine Sodium [Synthroid] 200 mcg PO DAILY 10/15/22 10/15/22 History amLODIPine BESYLATE/BENAZEPRIL 1 cap PO DAILY 10/15/22 10/15/22 History [Lotrel 10-20 mg Capsule] hydrOXYzine HCL [Atarax] 25 mg PO TID PRN 10/15/22 10/15/22 History traZODone HCL [Desyrel] 50 mg PO HS PRN 10/15/22 10/15/22 History Allergies Allergy/AdvReac Type Severity Reaction Status Date / Time No Known Allergies Allergy Verified 10/15/22 10:49 Physical Exam Vitals: Vital Signs Temp Pulse Resp BP Pulse Ox 10/16/22 03:09 79 18 122/92 10/16/22 02:48 84 18 129/113 97 10/16/22 00:56 22 98 10/15/22 22:03 97.8 F 105 H 20 130/94 98 10/15/22 20:22 97.8 F 98 20 156/103 98 10/15/22 12:23 90 18 142/124 98 10/15/22 11:13 92 18 150/116 99 10/15/22 10:03 89 18 141/108 100 10/15/22 08:07 90 20 156/107 99 10/15/22 06:00 85 18 138/108 100 GENERAL EXAM: Lethargic, 47-year-old male, in a hard c-collar, fairly comfortable in no apparent distress. He is in soft restraints. HEAD: Normocephalic. Small anterior ecchymosis EYES: Normal reaction of pupils, equal size. NOSE: Clear with pink turbinates. THROAT: No erythema or exudates. NECK: No masses, no JVD. Heart c-collar in place CHEST: bruising at the left lower chest bruising without gross deformity LUNGS: Equal air entry with sonorous lung sounds. no crackles, wheeze, rhonchi or dullness. On room air. No conversational dyspnea or accessory muscle use.. CVS: S1 and S2 normal with no audible murmur, regular rhythm. No extra heart sounds ABDOMEN: Obese abdomen. No hepatosplenomegaly, active bowel sounds, no guarding or rigidity. SPINE: No scoliosis or deformity SKIN: No rashes CENTRAL NERVOUS SYSTEM: No focal deficits, tone equal in all 4 extremities. EXTREMITIES: There is no peripheral edema, clubbing, or cyanosis. Peripheral pulses are intact. Results - Laboratory Findings CBC and BMP: 10/16/22 05:29 10/16/22 05:29 PT/INR, D-dimer PT 10.3 sec (9.0-12.0) 10/14/22 23:05 INR 1.0 (<1.2) 10/14/22 23:05 Abnormal lab findings: Abnormal Labs 10/14/22 10/14/22 10/14/22 23:05 23:05 23:53 RBC 3.70 L Hgb 11.9 L Hct 35.6 L RDW 16.0 H Plt Count 77 L Lymphocytes # 0.4 L Sodium 130 L Chloride 93 L Glucose 200 H Plasma Lactic Acid Bobby 2.8 H* Total Bilirubin 1.7 H AST 92 H ALT 51 H Urine Protein Urine Ketones Hyaline Casts Urine Mucus 10/15/22 04:11 RBC Hgb Hct RDW Plt Count Lymphocytes # Sodium Chloride Glucose Plasma Lactic Acid Bobby Total Bilirubin AST ALT Urine Protein 1+ H Urine Ketones 1+ H Hyaline Casts 31 H Urine Mucus Occasional H - Diagnostic Findings Chest x-ray: image reviewed Assessment and Plan Assessment: Acute alcohol withdrawal and delirium tremens, responding to CIWA protocol. Frequent falls, resulting in cervical spine and rib fractures. Head/cervical spine CT which demonstrated small anterior corner fractures involving the anterior and inferior endplate of the third and fourth vertebral bodies. The avulsion fracture is measured 2 mm at C3 and 3-4 mm at C4. The vertebral bodies are otherwise intact. There was also several lucency noted particularly in the right lamina of the C6. A nondisplaced fracture was not excluded. There was a small superficial scalp contusion overlying the left parietal region. No acute intracranial process. There were also nondisplaced posterior medial right first and second rib fractures at the costovertebral angle. Chest x-ray showed subtle rib irregularity at the left sixth rib level possibly acute vs chronic rib fracture. Thrombocytopenia, likely secondary to alcohol abuse Elevated LFTs, likely secondary to alcohol abuse Benign essential hypertension Hypothyroidism Alcoholism, serum alcohol level less than 10 on arrival Obesity, BMI 30 Plan: Patient's medications, labs, imaging reviewed Continue CIWA protocol May start Precedex if necessary Continue assess need for physical restraints/discontinuation Fall precautions Seizure precautions Orthopedic consultation was obtained, no plans for surgical intervention at this time Continue hard c-collar We will continue to follow the patient on the intensive care unit I have personally seen and examined the patient, performed the documentation and the assessment and plan as written. Number of minutes spent on the visit:20 This is a joint evaluation that was done along with the nurse practitioner. The patient is a 47-year-old patient with history of alcoholism presented with delirium tremens. The patient was also having frequent falls. He has sustained trauma to his neck and he has cervical spine fracture, involving the endplate of the third and the fourth vertebral bodies. The patient is currently wearing a hard collar. The fracture itself is measuring 2 mm at C3 and 4 mm at C4. The patient has limited neurologic examination due to his underlying encephalopathy related to alcohol withdrawal. Nevertheless, he is moving all 4 extremities and he was withdrawing to painful stimulation all 4 extremities without any limitation. Spine surgery will be placed in consultation at the same time, the patient has multiple fractures of the ribs on the left and it is involving the third through the eighth rib based on the plane chest x-ray. This morning, he is, comfortable. No significant agitation. He has received Ativan a total of 6 mg IV and the patient has a Precedex drip ordered to be used as needed. I do not see any significant agitation at this point in time. The patient is going to be transferred to the intensive care unit. He is on IV fluids at 100 mL an hour of normal saline along with thiamine. His blood work and electrolytes are normal. His liver function tests were elevated consistent with alcoholism. His lactic acid level dropped from 2.8 down to 0.7. His platelet counts are chronically low related to alcoholism. We'll keep the hard neck collar at this point in time. We'll continue to follow. Condition is critical. The patient moved to the intensive care unit. I'm going also to add clonidine patch 0.1 mg for a total blood pressure control. He was placed on IV Protonix. Thiamine will be added. Time with Patient: Greater than 30
[2022-10-16 05:53] LABS: Basophils % (A) 0 %; Eosinophils # (A) 0.1 k/uL (0-0.7); Eosinophils % (A) 1 %; HCT 31.6 % (39.0-53.0); HGB 10.4 gm/dL (13.0-17.5); Lymphocytes # (A) 0.6 k/uL (1.0-4.8); Lymphocytes % (A) 12 %; Macrocytosis Slight; Mean Platelet Volume 9.3; Monocytes # (A) 0.3 k/uL (0-1.0); Monocytes % (A) 6 %; Neutrophils # (A) 3.8 k/uL (1.3-7.7); Neutrophils % (A) 78 %; RBC 3.16 m/uL (4.30-5.90); RDW 15.7 % (11.5-15.5); WBC 4.8 k/uL (3.8-10.6)
[2022-10-16 05:57] LABS: Platelet Count 60 k/uL (150-450)
[2022-10-16] MEDS: LORazepam 2 MG/ML INJ IV STA ×2 (06:01→06:02)
[2022-10-16 06:09] LABS: African American GFR (CKD) >90 (>60 ml/min/1.73 sqM); Anion Gap 6 mmol/L; Blood Urea Nitrogen 12 mg/dL (9-20); Calcium 8.7 mg/dL (8.4-10.2); Carbon Dioxide 30 mmol/L (22-30); Chloride 98 mmol/L (98-107); Glucose 76 mg/dL (74-99); Non-African American GFR(CKD) >90 (>60 ml/min/1.73 sqM); Potassium 3.5 mmol/L (3.5-5.1); Sodium 134 mmol/L (137-145)
[2022-10-16] MEDS ORDERED: ENOXAPARIN 40 MG/0.4 ML SYRINGE SQ SCH (09:00)
[2022-10-16] MEDS: DEXMEDETOMIDINE/0.9% NACL(PMX) 400 MCG in EMPTY BAG 1 BAG IV SCH ×2 (09:10→09:46)
[2022-10-16] MEDS ORDERED: Potassium Replacement Protocol 1 EACH MISC MISCELLANE PRN (09:17)
[2022-10-16] MEDS ORDERED: Magnesium Replacement Protocol 1 EACH MISC MISCELLANE PRN (09:17)
[2022-10-16 09:21] LABS: Glucose,Whole Blood 70 mg/dL (70-110)
[2022-10-16] MEDS: lisinopriL 20 MG TAB PO SCH ×2 (09:33→10:38)
[2022-10-16] MEDS: LEVOTHYROXINE 100 MCG TAB PO SCH ×2 (09:45→10:39)
[2022-10-16] MEDS ORDERED: THIAMINE 100 MG in SODIUM CHLORIDE 0.9% 50 ML IVPB SCH (09:45)
[2022-10-16] MEDS: amLODIPine 10 MG TAB PO SCH ×2 (09:45→10:38)
[2022-10-16] MEDS: THIAMINE 100 MG TAB PO SCH (09:46)
[2022-10-16] MEDS: PANTOPRAZOLE 40 MG/10 ML VIAL IVP SCH (09:51)
[2022-10-16] MEDS: THIAMINE 100 MG/ML 2 ML VIAL IV SCH ×2 (09:56→21:20)
[2022-10-16] MEDS ORDERED: cloNIDine 0.1 MG/24HR PATCH TRANSDERM SCH (10:00)
[2022-10-16] MEDS: POTASSIUM CHLORIDE ER 20 MEQ TAB.ER PO SCH ×4 (10:38→18:59)
[2022-10-16 11:00] LABS: Glucose,Whole Blood 72 mg/dL (70-110)
[2022-10-16] MEDS: SODIUM CHLORIDE 0.9% 1,000 ML IV SCH ×2 (11:00→21:30)
[2022-10-16] MEDS ORDERED: DEXTROSE 50% SYRINGE 50 ML IVP ONE (11:02)
[2022-10-16 11:54] LABS: Glucose,Whole Blood 142 mg/dL (70-110)
--- NOTE | 2022-10-16 13:36 | P.PN ---
Subjective Progress Note Date: 10/16/22 Principal diagnosis: Acute alcohol withdrawal. Multiple recent falls. C3 and C4 anterior fractures. Patient is a 47-year-old male with past medical history remarkable for daily al cohol abuse, hypertension, who presents emergency Department after a fall. Patient fell last week as well. He states that he was not seen after the first fall. He Hit his face in the first fall last week and when he fell last night he bit his tongue. States his last drink was on Sunday and has not been drinking much since. Normally drinks a pint of vodka per day. Does endorse a history of alcohol withdrawals. Denies any seizure history. States he is uncertain what made him fall earlier and thinks he may have loss consciousness. He is somewhat confused regarding the fall earlier. States he is having shaking. Has also been having decreased oral intake over the last week or so without any known reason why. Has no other acute complaints at this time. States is not on blood thinners. Denies any obvious injuries from the fall other than his tongue and the forehead bruising. We are consulted for orthopedic spine evaluation of fractures seen on his cervical CT scan. 10/16/2022: The patient was still in the emergency room this morning at the time of my exam awaiting an ICU bed. He was sedated. A [place] hard Cervical collar is in place. The patient is unable to provide history at this time. Vital signs are stable. He is afebrile. Objective - Vital Signs Vital signs: Vital Signs Temp 97.8 F 10/16/22 12:30 Pulse 75 10/16/22 12:30 Resp 16 10/16/22 12:30 BP 125/97 10/16/22 12:30 Pulse Ox 100 10/16/22 12:30 FiO2 Intake & Output 10/15/22 10/16/22 10/16/22 18:59 06:59 18:59 Intake Total 230 Output Total 420 Balance -190 Intake: IV 230 Invasive Line 2 30 Sodium Chloride 0.9% 1, 200 000 ml @ 100 mls/hr IV . Q10H YESI Rx#:[id number] Output: Urine 420 - Exam This is a 47-year-old male who is currently sedated. A [place] hard cervical collar is in place. His extremities appear to be perfused with good capillary refill. - Labs CBC & Chem 7: 10/16/22 05:29 10/16/22 05:29 Labs: Abnormal Lab Results - Last 24 Hours (Table) 10/16/22 10/16/22 10/16/22 Range/Units 05:29 05:29 11:53 RBC 3.16 L (4.30-5.90) m/uL Hgb 10.4 L (13.0-17.5) gm/dL Hct 31.6 L (39.0-53.0) % RDW 15.7 H (11.5-15.5) % Plt Count 60 L (150-450) k/uL Lymphocytes # 0.6 L (1.0-4.8) k/uL Sodium 134 L (137-145) mmol/L POC Glucose (mg/dL) 142 H (70-110) mg/dL Assessment and Plan (1) Alcohol withdrawal Current Visit: Yes Status: Acute Code(s): F10.939 - ALCOHOL USE, UNSPECIFIED WITH WITHDRAWAL, UNSPECIFIED SNOMED Code(s): 548854900 (2) Cervical spine fracture Current Visit: Yes Status: Acute Code(s): S12.9XXA - FRACTURE OF NECK, UNSPECIFIED, INITIAL ENCOUNTER SNOMED Code(s): 620814663 (3) Dehydration Current Visit: Yes Status: Acute Code(s): E86.0 - DEHYDRATION SNOMED Code(s): 04340862 (4) Fall Current Visit: Yes Status: Acute Code(s): W19.XXXA - UNSPECIFIED FALL, INITIAL ENCOUNTER SNOMED Code(s): 9337409 Plan: The clinical and x-ray findings are discussed with Nursing staff. The case is reviewed with Dr. Yu. It is recommended he continue in the hard collar. We will continue to follow his progress. I have consulted Dr. Yu for further recommendations and management.
[2022-10-16] MEDS: MAGNESIUM SULFATE-D5W PMX 1 GM in DEXTROSE/WATER 1 100ML.BAG IVPB SCH ×2 (15:52→16:52)
--- NOTE | 2022-10-16 16:54 | P.PN ---
Subjective Progress Note Date: 10/16/22 47-year-old male with PMH of chronic alcohol abuse, repeated falls presents to the ED for alcohol withdrawal symptoms. In the ED, he was tachycardic with a rate of 105, BP of 153/114. CBC showed hemoglobin of 11.9 and platelet count of 77. Coagulation panel within normal limits. CMP showed sodium of 130, chloride of 93, glucose of 200, total bilirubin of 1.7, AST of 92, ALT of 51. Lactic acid was 2.8. Urinalysis 1+ ketone 1+ protein. Serum alcohol less than 10. Influenza RSV, COVID-19 negative. EKG showed sinus tachycardia. CT head and C- spine showed small anterior corner fractures involving the anterior and inferior endplate of C3 and C4, subtle lucency in the right lamina of C6, non displaced posterior medial right first and second rib fractures. Patient was placed on CIWA protocol and given Ativan as needed. Librium was added. Orthopedic surgery was consulted and recommended continuing hard collar for now. 10/16 Overnight, patient continued to be restless with in the ED and was placed on restraints. Admitted to MICU for closer monitoring. His most recent BP is 138/108 with P of 85. CBC shows hemoglobin of 10.4 with MCV of 100 and platelet count of 60. BMP shows sodium 134. Repeat lactic acid is 0.7. Most recent CIWA is 12. Currently on Librium 20 mg PO TID. Received 16 mg of Ativan over the past 24 hours. General: non toxic, no distress, appears at stated age Derm: warm, dry Head: atraumatic, normocephalic, symmetric, C-collar intact Eyes: EOMI, no lid lag, anicteric sclera Cardiovascular: S1S2 reg, no murmur Lungs: CTA bilateral, no rhonchi, no rales , no accessory muscle use Ext: no gross muscle atrophy, no edema, no contractures Neuro: no focal neuro deficits Psych: Restless, disoriented Delirium tremens Cervical spine fracture Rib fracture Frequent falls Macrocytic anemia Thrombocytopenia Transaminitis Resolved: Lactic acidosis Chronic conditions: Hypertension, Hypothyroidism Based on my assessment of this patient, this patient meets a high complexity level of care. Patient has an acute diagnosis of delirium tremens that poses a threat to life or bodily function. Currently on Librium 20 mg PO TID. Received 16 mg of Ativan over the past 24 hours. Plans to admit to MICU for closer monitoring. Precedex drip if needed for agitation. CIWA protocol. Continue C-collar. Seizure and Fall precautions. Telemetry monitoring. PT and OT has been consulted. SCDs for DVT prophylaxis. FULL CODE. I have reviewed the following career consultant notes: Pulmonology and Orthopedic note reviewed as above. I have reviewed the results of the following tests: CBC, BMP, Lactic acid as above. I have ordered the following tests: CBC, BMP. I have discussed the care of this patient with the following independent historian: I have independently interpreted the following test below: I have discussed the management of this patient with the following physician: Objective - Vital Signs Vital signs: Vital Signs Temp 97.8 F 10/15/22 22:03 Pulse 75 10/16/22 07:24 Resp 20 10/16/22 07:24 BP 153/100 10/16/22 07:24 Pulse Ox 97 10/16/22 07:24 FiO2 - Labs CBC & Chem 7: 10/16/22 05:29 10/16/22 15:51 Labs: Abnormal Lab Results - Last 24 Hours (Table) 10/16/22 10/16/22 Range/Units 05:29 05:29 RBC 3.16 L (4.30-5.90) m/uL Hgb 10.4 L (13.0-17.5) gm/dL Hct 31.6 L (39.0-53.0) % RDW 15.7 H (11.5-15.5) % Plt Count 60 L (150-450) k/uL Lymphocytes # 0.6 L (1.0-4.8) k/uL Sodium 134 L (137-145) mmol/L
[2022-10-16 18:03] LABS: Glucose,Whole Blood 107 mg/dL (70-110)
[2022-10-16] MEDS: POTASSIUM CHLORIDE 10 MEQ in WATER FOR INJECTION 1 100ML.BAG IVPB SCH (23:36)
[2022-10-17 00:06] LABS: Glucose,Whole Blood 97 mg/dL (70-110)
[2022-10-17] MEDS: POTASSIUM CHLORIDE 10 MEQ in WATER FOR INJECTION 1 100ML.BAG IVPB SCH (00:50)
[2022-10-17 05:57] LABS: Potassium 4.2 mmol/L (3.5-5.1)
[2022-10-17 05:58] LABS: ALT 26 U/L (4-49); AST 45 U/L (17-59); African American GFR (CKD) >90 (>60 ml/min/1.73 sqM); Albumin 3.2 g/dL (3.5-5.0); Alkaline Phosphatase 83 U/L (38-126); Anion Gap 4 mmol/L; Blood Urea Nitrogen 8 mg/dL (9-20); Calcium 7.9 mg/dL (8.4-10.2); Carbon Dioxide 24 mmol/L (22-30); Chloride 101 mmol/L (98-107); Glucose 78 mg/dL (74-99); Magnesium 1.8 mg/dL (1.6-2.3); Non-African American GFR(CKD) >90 (>60 ml/min/1.73 sqM); Sodium 129 mmol/L (137-145); Total Bilirubin 0.8 mg/dL (0.2-1.3); Total Protein 5.4 g/dL (6.3-8.2)
[2022-10-17 06:03] LABS: Anisocytosis Slight; HCT 27.2 % (39.0-53.0); MCH 31.9 pg (25.0-35.0); MCHC 32.6 g/dL (31.0-37.0); MCV 97.9 fL (80.0-100.0); Mean Platelet Volume 8.9; RBC 2.78 m/uL (4.30-5.90); RDW 16.3 % (11.5-15.5); WBC 5.8 k/uL (3.8-10.6)
[2022-10-17 06:03] LABS: Glucose,Whole Blood 89 mg/dL (70-110)
[2022-10-17 06:08] LABS: HGB 8.9 gm/dL (13.0-17.5); Platelet Count 74 k/uL (150-450)
[2022-10-17] MEDS: SODIUM CHLORIDE 0.9% 1,000 ML IV SCH (06:47)
[2022-10-17] MEDS ORDERED: MAGNESIUM SULFATE-D5W PMX 1 GM in DEXTROSE/WATER 1 100ML.BAG IVPB ONE (07:30)
--- NOTE | 2022-10-17 08:44 | P.CNOR ---
History of Present Illness - [facility] Consult date: 10/17/22 Requesting physician: Ute Palacios Consult reason: fracture (C3 and C4 anterior inferior endplate and C6 right lamina) History of present illness: Patient is a very pleasant 47-year-old male who is seen and examined at the bedside in the ICU for further evaluation of his cervical spine. Patient has a past medical history which includes daily alcohol abuse and hypertension who presented to the emergency department after sustaining a fall. He does report he has 2 known falls. He did not seek further evaluation after his initial fall. He presented to the emergency department after his second fall. Patient normally drinks approximately 1 pint of vodka per day. He does have a history of alcohol withdrawals. He was having some withdrawal symptoms yesterday and was transferred to the ICU. He was sedated. He is not currently sedated and is answering questions appropriately at the bedside. He is being managed with medication. He has a [place] hard cervical collar intact. He denies any upper extremity weakness or radiculopathy bilaterally. 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 He denies any cervical pain. His hard cervical collar is removed and reapplied to fit more appropriately. This is fitting comfortably for him. He has no current complaints in regards to his cervical spine. He is been seen by pulmonology and medicine. 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 He was initially placed in a plastic Styrofoam hard cervical collar. This is at the bedside. We did discuss this brace may be utilized when bathing/showering but he should keep the [place] hard cervical collar intact at all times other than when bathing/showering. Past Medical History Past Medical History: Hypertension, Thyroid Disorder History of Any Multi-Drug Resistant Organisms: None Reported Past Surgical History: Orthopedic Surgery Additional Past Surgical History / Comment(s): ankle and knee surgery. Past Psychological History: Anxiety Smoking Status: Former smoker Past Alcohol Use History: Abuse, Daily Past Drug Use History: Marijuana Medications and Allergies Home Medications Medication Instructions Recorded Confirmed Type Levothyroxine Sodium [Synthroid] 200 mcg PO DAILY 10/15/22 10/15/22 History amLODIPine BESYLATE/BENAZEPRIL 1 cap PO DAILY 10/15/22 10/15/22 History [Lotrel 10-20 mg Capsule] hydrOXYzine HCL [Atarax] 25 mg PO TID PRN 10/15/22 10/15/22 History traZODone HCL [Desyrel] 50 mg PO HS PRN 10/15/22 10/15/22 History Allergies Allergy/AdvReac Type Severity Reaction Status Date / Time No Known Allergies Allergy Verified 10/15/22 10:49 Physical Examination Physical exam: Patient is awake, alert, and oriented 3 Vital signs stable Good chest excursion with deep inspiration and expiration Hard cervical collar intact; cervical collar is removed and reapplied during physical examination Examination of the cervical spine reveals skin is intact with no abrasions, lacerations, or bruises; no erythema, purulence or signs of infection Evidence of a bruise at the posterior right shoulder and a bruise of the posterior left shoulder Evidence of a large lipoma the right wrist Reduced range of motion of the cervical spine with adequate flexion, extension, and bilateral rotation with hard cervical collar Patient is able to perform some gentle range of motion of his cervical spine during physical examination 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 strength, thumb strength, interosseous strength, biceps strength, triceps strength, and shoulder strength positive sustained bilaterally Upper extremity strength 5/5 bilaterally Results Pertinent studies: CT of the head and cervical spine taken on 10/15/2022: Lucency of the right C6 lamina which may represent nondisplaced fracture; evidence of C3 and C4 anterior inferior endplate avulsion fractures of the vertebral bodies; no compression fracture; no spondylolisthesis; no obvious spinal stenosis; C4-5 and C5-6 degenerative disc disease; loss of cervical lordosis - Labs Labs: Abnormal Lab Results - Last 24 Hours (Table) 10/16/22 10/17/22 10/17/22 Range/Units 11:53 05:06 05:06 RBC 2.78 L (4.30-5.90) m/uL Hgb 8.9 L D (13.0-17.5) gm/dL Hct 27.2 L (39.0-53.0) % RDW 16.3 H (11.5-15.5) % Plt Count 74 L (150-450) k/uL Sodium 129 L (137-145) mmol/L BUN 8 L (9-20) mg/dL POC Glucose (mg/dL) 142 H (70-110) mg/dL Calcium 7.9 L (8.4-10.2) mg/dL Total Protein 5.4 L (6.3-8.2) g/dL Albumin 3.2 L (3.5-5.0) g/dL H & H 10/14/22 10/16/22 10/17/22 Range/Units 23:05 05:29 05:06 Hgb 11.9 L 10.4 L 8.9 L D (13.0-17.5) gm/dL Hct 35.6 L 31.6 L 27.2 L (39.0-53.0) % Coagulation 10/14/22 Range/Units 23:05 INR 1.0 (<1.2) Result Diagrams: 10/17/22 05:06 10/17/22 05:06 Assessment and Plan Assessment: Assessment Status post multiple falls C3 and C4 anterior inferior endplate avulsion fractures of the vertebral bodies Lucency of the right C6 lamina which may represent nondisplaced fracture C4-5 and C5-6 degenerative disc disease Alcohol abuse Alcohol withdrawal symptoms Hypertension Hypothyroidism Elevated LFTs Thrombocytopenia Obesity Chronic right wrist lipoma (1) C3 cervical fracture Current Visit: Yes Status: Acute Code(s): S12.200A - UNSP DISP FX OF THIRD CERVICAL VERTEBRA, INIT FOR CLOS FX SNOMED Code(s): 321535253 (2) C4 cervical fracture Current Visit: Yes Status: Acute Code(s): S12.300A - UNSP DISP FX OF FOURTH CERVICAL VERTEBRA, INIT FOR CLOS FX SNOMED Code(s): 319425452 (3) C6 cervical fracture Current Visit: Yes Status: Acute Code(s): S12.500A - UNSP DISP FX OF SIXTH CERVICAL VERTEBRA, INIT FOR CLOS FX SNOMED Code(s): 995662116 (4) Alcohol abuse Current Visit: Yes Status: Acute Code(s): F10.10 - ALCOHOL ABUSE, UNCOMPLIC ATED SNOMED Code(s): 92987855 (5) Hypertension Current Visit: Yes Status: Acute Code(s): I10 - ESSENTIAL (PRIMARY) HYPERTENSION SNOMED Code(s): 87800946 (6) Hypothyroidism Current Visit: Yes Status: Acute Code(s): E03.9 - HYPOTHYROIDISM, UNSPECIFIED SNOMED Code(s): 21330037 (7) Elevated LFTs Current Visit: Yes Status: Acute Code(s): R79.89 - OTHER SPECIFIED ABNORMAL FINDINGS OF BLOOD CHEMISTRY SNOMED Code(s): 728056356 (8) Thrombocytopenia Current Visit: Yes Status: Acute Code(s): D69.6 - THROMBOCYTOPENIA, UNSPECIFIED SNOMED Code(s): 314849530 (9) Obesity (BMI 30.0-34.9) Current Visit: Yes Status: Acute Code(s): E66.9 - OBESITY, UNSPECIFIED SNOMED Code(s): 694605717537404 (10) Alcohol withdrawal Current Visit: Yes Status: Acute Code(s): F10.939 - ALCOHOL USE, UNSPECIFIED WITH WITHDRAWAL, UNSPECIFIED SNOMED Code(s): 046056240 (11) Degeneration of intervertebral disc at C4-C5 level Current Visit: Yes Status: Acute Code(s): M50.321 - OTHER CERVICAL DISC DEGENERATION AT C4-C5 LEVEL SNOMED Code(s): 04630639 (12) Degeneration of intervertebral disc at C5-C6 level Current Visit: Yes Status: Acute Code(s): M50.322 - OTHER CERVICAL DISC DEGENERATION AT C5-C6 LEVEL SNOMED Code(s): 88065029 Plan: Plan: 1. Patient is known to have sustained multiple falls and presented to the emergency department after a second fall for further evaluation. After evaluation with CT imaging, he was found to have C3 and C4 anterior inferior endplate avulsion fractures of the vertebral bodies with lucency of the right C6 lamina which may represent nondisplaced fracture. He was placed in a hard cervical. He is currently in a [place] hard cervical collar intact. He denies any upper extremity weakness or radiculopathy bilaterally. He denies any cervical pain. He has no current complaints in regards to his cervical spine. He is not experiencing any neurological compromise. He has good range of motion of his upper extremities bilaterally independently. He is answering questions appropriately at bedside. Currently, we will plan to continue with conservative treatment in regards to his cervical spine. We did discuss he should keep his [place] hard cervical collar intact at all times. However, patient was initially placed in a plastic Styrofoam hard cervical collar. This is at the bedside. We did discuss he may transition from the [place] hard cervical collar to the plastic Styrofoam hard cervical collar when bathing/showering but he should keep the [place] hard cervical collar intact at all times other than when bathing/showering. Patient should avoid any heavy lifting activities. No lifting greater than 10 pounds. No overhead lifting. Avoid any excessive active range of motion of the cervical spine. We are not currently planning for surgical intervention. From an orthopedic spine standpoint, patient is clear for discharge. Patient may follow-up with Gordon Dee PA-C or Dr. Kali Yu at [facility] in 2 weeks following discharge. 2. Patient will continue be seen exam by multiple other medical providers including pulmonology and medicine. They will continue to manage his alcohol withdrawal symptoms. Time with Patient: Greater than 30 (Including obtaining history, physical examination, reviewing of imaging, and dictation.)
--- NOTE | 2022-10-17 09:16 | P.PN ---
Subjective Progress Note Date: 10/17/22 On today's evaluation of 10/17/2022, the patient is being seen for a follow-up. The patient did not want to the care unit. The patient has a hard cervical collar and is being worn at all times. Is able to move his arms and legs without any limitation. As mentioned earlier, the patient has had multiple falls and he has a C3/C4 anterior inferior end plate avulsion fracture of the vertebral bodies. There is also loose. The level of the right cc 6 [place] a which may represent a nondisplaced fracture. He also has a fractures. He does have some limited shaking. No confusion. No agitation. No restlessness. The white cell count of 5.8 with a hemoglobin of 8.9. Sodium level is 29 and the BUN is at 8 with a creatinine of 0.6. Liver function tests are essentially within normal limits. The patient is receiving Ativan per protocol for DVT, and the patient is on a patch his blood pressures under better control in combination with Norvasc 10 mg by mouth daily. He is receiving morphine for pa in control for milligrams IV every 4 hours on a when necessary basis. Is also on thiamine. Librium started 20 mg by mouth 3 times a day. Objective - Vital Signs Vital signs: Vital Signs Temp 98.4 F 10/17/22 00:00 Pulse 77 10/17/22 08:00 Resp 14 10/17/22 08:00 BP 125/79 10/17/22 07:00 Pulse Ox 99 10/17/22 07:00 FiO2 Intake & Output 10/16/22 10/17/22 10/17/22 18:59 06:59 18:59 Intake Total 1300 1400 100 Output Total 825 510 50 Balance 475 890 50 Weight 115 kg Intake: IV 1060 1200 100 Invasive Line 2 60 Magnesium Sulfate-D5w Pmx 200 1 gm In Dextrose/Water 1 100ml.bag @ 100 mls/hr IVPB Q1H YESI Rx#: [id number] Sodium Chloride 0.9% 1, 800 1200 100 000 ml @ 100 mls/hr IV . Q10H YESI Rx#:[id number] Oral 240 200 Output: Urine 825 510 50 Other: Voiding Method Indwelling Catheter Indwelling Catheter Indwelling Catheter - Exam GENERAL EXAM: Lethargic, 47-year-old male, in a hard c-collar, fairly comfortable in no apparent distress. He is in soft restraints. The patient is currently on room air oxygen. HEAD: Normocephalic. Small anterior ecchymosis EYES: Normal reaction of pupils, equal size. NOSE: Clear with pink turbinates. THROAT: No erythema or exudates. NECK: No masses, no JVD. Heart c-collar in place CHEST: bruising at the left lower chest bruising without gross deformity LUNGS: Equal air entry with sonorous lung sounds. no crackles, wheeze, rhonchi or dullness. On room air. No conversational dyspnea or accessory muscle use.. CVS: S1 and S2 normal with no audible murmur, regular rhythm. No extra heart sounds ABDOMEN: Obese abdomen. No hepatosplenomegaly, active bowel sounds, no guarding or rigidity. SPINE: No scoliosis or deformity SKIN: No rashes CENTRAL NERVOUS SYSTEM: No focal deficits, tone equal in all 4 extremities. The patient is alert and oriented. He knows the time and the place and the year. No focal neurological deficits. EXTREMITIES: There is no peripheral edema, clubbing, or cyanosis. Peripheral pulses are intact. - Labs CBC & Chem 7: 10/17/22 05:06 10/17/22 05:06 Labs: Abnormal Lab Results - Last 24 Hours (Table) 10/16/22 10/17/22 10/17/22 Range/Units 11:53 05:06 05:06 RBC 2.78 L (4.30-5.90) m/uL Hgb 8.9 L D (13.0-17.5) gm/dL Hct 27.2 L (39.0-53.0) % RDW 16.3 H (11.5-15.5) % Plt Count 74 L (150-450) k/uL Sodium 129 L (137-145) mmol/L BUN 8 L (9-20) mg/dL POC Glucose (mg/dL) 142 H (70-110) mg/dL Calcium 7.9 L (8.4-10.2) mg/dL Total Protein 5.4 L (6.3-8.2) g/dL Albumin 3.2 L (3.5-5.0) g/dL Assessment and Plan Assessment: Acute alcohol withdrawal and delirium tremens, responding to CIWA protocol. The patient is awake and alert and the patient is currently on Librium and Ativan per protocol. Results on thiamine. He is receiving regular diet. Frequent falls, resulting in cervical spine and rib fractures. Head/cervical spine CT which demonstrated small anterior corner fractures involving the anterior and inferior endplate of the third and fourth vertebral bodies. The avulsion fracture is measured 2 mm at C3 and 3-4 mm at C4. The vertebral bodies are otherwise intact. There was also several lucency noted particularly in the right lamina of the C6. A nondisplaced fracture was not excluded. There was a small superficial scalp contusion overlying the left parietal region. No acute intracranial process. There were also nondisplaced posterior medial right first and second rib fractures at the costovertebral angle. Chest x-ray showed subtle rib irregularity at the left sixth rib level possibly acute vs chronic rib fracture. Thrombocytopenia, likely secondary to alcohol abuse Elevated LFTs, likely secondary to alcohol abuse Benign essential hypertension Hypothyroidism Alcoholism, serum alcohol level less than 10 on arrival Obesity, BMI 30 Hyponatremia, sodium levels of 129 Plan: Orthopedic surgeries spine surgery are both on the case Continue Librium Ativan as needed Morphine for pain control Incentive spirometer Offered diet Fall precautions Seizure precautions Orthopedic consultation was obtained, no plans for surgical intervention at this time Continue hard c-collar Continue clonidine patch and Norvasc for blood pressure control We will continue to follow the patient on the intensive care unit
[2022-10-17] MEDS: LEVOTHYROXINE 100 MCG TAB PO SCH (09:47)
[2022-10-17] MEDS: amLODIPine 10 MG TAB PO SCH (09:47)
[2022-10-17] MEDS: PANTOPRAZOLE 40 MG/10 ML VIAL IVP SCH (09:47)
[2022-10-17] MEDS: lisinopriL 20 MG TAB PO SCH (09:47)
[2022-10-17] MEDS: THIAMINE 100 MG/ML 2 ML VIAL IV SCH ×2 (09:47→20:58)
--- NOTE | 2022-10-17 10:46 | P.PN ---
Subjective Progress Note Date: 10/17/22 Pt doing well today. No hallucinations, tremors, seizures overnight. Withdrawal controlled on librium QID and ativan PRN. Gen: awake, alert HEENT: normocephalic, atraumatic, good hearing acuity, moist mucous membranes Resp: good air exchange, breathing comfortably with no accessory muscle use CVS: good distal perfusion x 4, GI: soft, NTTP, ND : no SPT, no CVAT, westfall catheter is present MSK: no pitting edema, no clubbing Neuro: non-focal, moving all extremities Psych: cooperative, euthymic mood Hospital course: 47-year-old male with PMH of chronic alcohol abuse, repeated falls presented to the ED for alcohol withdrawal symptoms. In the ED, he was tachycardic with a rate of 105, BP of 153/114. CBC showed hemoglobin of 11.9 and platelet count of 77. Coagulation panel within normal limits. CMP showed sodium of 130, chloride of 93, glucose of 200, total bilirubin of 1.7, AST of 92, ALT of 51. Lactic acid was 2.8. Urinalysis 1+ ketone 1+ protein. Serum alcohol less than 10. Influenza RSV, COVID-19 negative. EKG showed sinus tachycardia. CT head and C- spine showed small anterior corner fractures involving the anterior and inferior endplate of C3 and C4, subtle lucency in the right lamina of C6, non displaced posterior medial right first and second rib fractures. Patient was placed on CIWA protocol and given Ativan as needed. Librium was added. Orthopedic surgery was consulted and recommended continuing hard collar with no need for surgical intervention at this time. On 10/16 Overnight, patient continued to be restless in the ED and was placed in restraints. Admitted to MICU for closer monitoring, and had received 16 mg of Ativan in 24 hours. Assessment: Delirium tremens Cervical spine fracture Rib fracture Frequent falls Macrocytic anemia Thrombocytopenia Transaminitis Resolved: Lactic acidosis Chronic conditions: Hypertension, Hypothyroidism Plan: Today, patient is afebrile, 116/77, heart rate 94, 98% on room air CBC demonstrated anemia down to 8.9 from 10.4, limits of 74 from 60 Complete metabolic panel showed sodium of 129, total protein of 5.4, albumin of 3.2 Magnesium was 1.8 Orthopedic surgery note reviewed, patient is to remain in cervical collar at all times Continue Librium 20 mg 3 times a day Continue Ativan when necessary, last required dose was on 10/16 Patient is stable for transfer to the medical floor PT consultation Morphine PRN for pain control Continue Thiamine, Folic Acid, MVI Pt is Full Code Objective - Vital Signs Vital signs: Vital Signs Temp 99.4 F 10/17/22 08:00 Pulse 94 10/17/22 09:00 Resp 19 10/17/22 09:00 BP 116/77 10/17/22 09:00 Pulse Ox 98 10/17/22 09:00 FiO2 Intake & Output 10/16/22 10/17/22 10/17/22 18:59 06:59 18:59 Intake Total 1300 1400 540 Output Total 825 510 150 Balance 475 890 390 Weight 115 kg Intake: IV 1060 1200 300 Invasive Line 2 60 Magnesium Sulfate-D5w Pmx 200 1 gm In Dextrose/Water 1 100ml.bag @ 100 mls/hr IVPB Q1H [facility] Rx#: [id number] Sodium Chloride 0.9% 1, 800 1200 300 000 ml @ 100 mls/hr IV . Q10H [facility] Rx#:[id number] Oral 240 200 240 Output: Urine 825 510 150 Other: Voiding Method Indwelling Catheter Indwelling Catheter Indwelling Catheter - Labs CBC & Chem 7: 10/17/22 05:06 10/17/22 05:06 Labs: Abnormal Lab Results - Last 24 Hours (Table) 10/16/22 10/17/22 10/17/22 Range/Units 11:53 05:06 05:06 RBC 2.78 L (4.30-5.90) m/uL Hgb 8.9 L D (13.0-17.5) gm/dL Hct 27.2 L (39.0-53.0) % RDW 16.3 H (11.5-15.5) % Plt Count 74 L (150-450) k/uL Sodium 129 L (137-145) mmol/L BUN 8 L (9-20) mg/dL POC Glucose (mg/dL) 142 H (70-110) mg/dL Calcium 7.9 L (8.4-10.2) mg/dL Total Protein 5.4 L (6.3-8.2) g/dL Albumin 3.2 L (3.5-5.0) g/dL
[2022-10-17 10:47] VITALS: BMI 33.4
[2022-10-17 11:55] LABS: Glucose,Whole Blood 127 mg/dL (70-110)
[2022-10-17] MEDS: MORPHINE SULFATE 4 MG/ML SYRINGE IV PRN (20:57)
[2022-10-18] MEDS: MORPHINE SULFATE 4 MG/ML SYRINGE IV PRN ×2 (04:03→21:05)
[2022-10-18 04:13] LABS: Basophils % (A) 0 %; Eosinophils # (A) 0.1 k/uL (0-0.7); Eosinophils % (A) 1 %; HCT 26.4 % (39.0-53.0); HGB 8.5 gm/dL (13.0-17.5); Lymphocytes # (A) 0.6 k/uL (1.0-4.8); Lymphocytes % (A) 11 %; MCH 32.7 pg (25.0-35.0); MCHC 32.3 g/dL (31.0-37.0); MCV 101.1 fL (80.0-100.0); Macrocytosis Slight; Mean Platelet Volume 9.6; Monocytes # (A) 0.6 k/uL (0-1.0); Monocytes % (A) 11 %; Neutrophils # (A) 4.1 k/uL (1.3-7.7); Neutrophils % (A) 75 %; Platelet Count 80 k/uL (150-450); RBC 2.61 m/uL (4.30-5.90); RDW 15.8 % (11.5-15.5); WBC 5.5 k/uL (3.8-10.6)
[2022-10-18 04:26] LABS: African American GFR (CKD) >90 (>60 ml/min/1.73 sqM); Anion Gap 2 mmol/L; Blood Urea Nitrogen 11 mg/dL (9-20); Calcium 8.1 mg/dL (8.4-10.2); Carbon Dioxide 29 mmol/L (22-30); Chloride 98 mmol/L (98-107); Glucose 99 mg/dL (74-99); Magnesium 1.8 mg/dL (1.6-2.3); Non-African American GFR(CKD) >90 (>60 ml/min/1.73 sqM); Potassium 3.9 mmol/L (3.5-5.1); Sodium 129 mmol/L (137-145)
[2022-10-18] MEDS ORDERED: POTASSIUM CHLORIDE ER 20 MEQ TAB.ER PO STA (07:46)
[2022-10-18] MEDS ORDERED: MAGNESIUM SULFATE-D5W PMX 1 GM in DEXTROSE/WATER 1 100ML.BAG IVPB ONE (08:45)
[2022-10-18] MEDS: FOLIC ACID 1 MG TAB PO SCH (08:48)
[2022-10-18] MEDS: THIAMINE 100 MG/ML 2 ML VIAL IV SCH ×2 (08:48→21:05)
[2022-10-18] MEDS: amLODIPine 10 MG TAB PO SCH (08:48)
[2022-10-18] MEDS: lisinopriL 20 MG TAB PO SCH (08:48)
[2022-10-18] MEDS: PANTOPRAZOLE 40 MG/10 ML VIAL IVP SCH (08:48)
[2022-10-18] MEDS: MULTIVITAMINS, THERA 1 EACH TAB PO SCH (08:49)
--- NOTE | 2022-10-18 09:30 | P.PN ---
Subjective Progress Note Date: 10/18/22 On today's evaluation of 10/17/2022, the patient is being seen for a follow-up. The patient did not want to the care unit. The patient has a hard cervical collar and is being worn at all times. Is able to move his arms and legs without any limitation. As mentioned earlier, the patient has had multiple falls and he has a C3/C4 anterior inferior end plate avulsion fracture of the vertebral bodies. There is also loose. The level of the right cc 6 [place] a which may represent a nondisplaced fracture. He also has a fractures. He does have some limited shaking. No confusion. No agitation. No restlessness. The white cell count of 5.8 with a hemoglobin of 8.9. Sodium level is 29 and the BUN is at 8 with a creatinine of 0.6. Liver function tests are essentially within normal limits. The patient is receiving Ativan per protocol for DVT, and the patient is on a patch his blood pressures under better control in combination with Norvasc 10 mg by mouth daily. He is receiving morphine for pa in control for milligrams IV every 4 hours on a when necessary basis. Is also on thiamine. Librium started 20 mg by mouth 3 times a day. On 10/18/2022, the patient is fully alert and awake and communicating on room air oxygen. No signs of delirium at this point in time. The patient has no specific complaints other than some soreness in his feet bilaterally. He is still wearing a neck collar and I discussed the case with the spine surgeon and there is no surgical intervention for now. The patient will be wearing the neck collar for now and he'll be looking into subacute rehabilitation. He is still quite weak, unable to ambulate freely and he was able to take a few steps with the help of the nursing staff. In terms of his blood pressure control, his blood pressure is stable for now. He is on a clonidine patch 0.4 mg. He was also taken Norvasc 10 mg by mouth daily. He is on Librium and he has not required any Ativan. He is on thiamine and folate and is also on IV Protonix. He did spike a low-grade temperature today at 100.9 and this will be monitored. The rest of the blood work from today shows a white cell count of 5.5 with a hemoglobin of 8.5. Platelets counts have been low at 80. BUN is 11 with a creatinine of 0.8 and sodium levels of 129. Potassium levels at 3.9. LFTs were essentially within normal limits. Objective - Vital Signs Vital signs: Vital Signs Temp 100.9 F H 10/18/22 08:00 Pulse 102 H 10/18/22 08:00 Resp 18 10/18/22 08:00 BP 113/85 10/18/22 08:00 Pulse Ox 99 10/18/22 02:00 FiO2 Intake & Output 10/17/22 10/18/22 10/18/22 18:59 06:59 18:59 Intake Total 1380 Output Total 350 400 Balance 1030 -400 Weight 115 kg 115.3 kg Intake: IV 300 Sodium Chloride 0.9% 1, 300 000 ml @ 100 mls/hr IV . Q10H [facility] Rx#:[id number] Oral 1080 Output: Urine 350 400 Other: Voiding Method Urinal Urinal # Bowel Movements 0 - Exam GENERAL EXAM: Lethargic, 47-year-old male, in a hard c-collar, fairly comfortable in no apparent distress. He is in soft restraints. The patient is currently on room air oxygen. HEAD: Normocephalic. Small anterior ecchymosis EYES: Normal reaction of pupils, equal size. NOSE: Clear with pink turbinates. THROAT: No erythema or exudates. NECK: No masses, no JVD. Heart c-collar in place CHEST: bruising at the left lower chest bruising without gross deformity LUNGS: Equal air entry with sonorous lung sounds. no crackles, wheeze, rhonchi or dullness. On room air. No conversational dyspnea or accessory muscle use.. CVS: S1 and S2 normal with no audible murmur, regular rhythm. No extra heart sounds ABDOMEN: Obese abdomen. No hepatosplenomegaly, active bowel sounds, no guarding or rigidity. SPINE: No scoliosis or deformity SKIN: No rashes CENTRAL NERVOUS SYSTEM: No focal deficits, tone equal in all 4 extremities. The patient is alert and oriented. He knows the time and the place and the year. No focal neurological deficits. EXTREMITIES: There is no peripheral edema, clubbing, or cyanosis. Peripheral pulses are intact. - Labs CBC & Chem 7: 10/18/22 03:58 10/18/22 03:58 Labs: Abnormal Lab Results - Last 24 Hours (Table) 10/17/22 10/18/22 10/18/22 Range/Units 11:54 03:58 03:58 RBC 2.61 L (4.30-5.90) m/uL Hgb 8.5 L (13.0-17.5) gm/dL Hct 26.4 L (39.0-53.0) % MCV 101.1 H (80.0-100.0) fL RDW 15.8 H (11.5-15.5) % Plt Count 80 L (150-450) k/uL Lymphocytes # 0.6 L (1.0-4.8) k/uL Sodium 129 L (137-145) mmol/L POC Glucose (mg/dL) 127 H (70-110) mg/dL Calcium 8.1 L (8.4-10.2) mg/dL Assessment and Plan Assessment: Acute alcohol withdrawal and delirium tremens, responding to CIWA protocol. The patient is awake and alert and the patient is currently on Librium and Ativan per protocol. Results on thiamine. He is receiving regular diet. No active signs of delirium tremens. Frequent falls, resulting in cervical spine and rib fractures. Head/cervical spine CT which demonstrated small anterior corner fractures involving the anterior and inferior endplate of the third and fourth vertebral bodies. The avulsion fracture is measured 2 mm at C3 and 3-4 mm at C4. The vertebral bodies are otherwise intact. There was also several lucency noted particularly in the right lamina of the C6. A nondisplaced fracture was not excluded. There was a small superficial scalp contusion overlying the left parietal region. No acute intracranial process. There were also nondisplaced posterior medial right first and second rib fractures at the costovertebral angle. Chest x-ray showed subtle rib irregularity at the left sixth rib level possibly acute vs chronic rib fracture. Thrombocytopenia, likely secondary to alcohol abuse Elevated LFTs, likely secondary to alcohol abuse Benign essential hypertension Hypothyroidism Alcoholism, serum alcohol level less than 10 on arrival Obesity, BMI 30 Hyponatremia, sodium levels of 129 Generalized weakness and difficulty with mobility and unsteady gait. The patient will benefit from rehabilitation. Plan: Orthopedic surgeries spine surgery are both on the case, no surgical interventions Continue Librium Ativan as needed, none was given over the past 24 hours Incentive spirometer Regular diet Fall precautions Seizure precautions Orthopedic consultation was obtained, no plans for surgical intervention at this time Continue hard c-collar Continue clonidine patch and Norvasc for blood pressure control in combination with Norvasc Monitor fever pattern No need for antibiotic coverage in the white cell count is within normal limits The patient will likely benefit from ECF/subacute rehab We will be moved out of the intensive care unit.
[2022-10-18] MEDS: ACETAMINOPHEN TAB 325 MG TAB PO PRN ×2 (09:34→15:15)
--- NOTE | 2022-10-18 11:04 | P.PN ---
Subjective Progress Note Date: 10/18/22 Pt doing well today. No hallucinations, tremors, seizures overnight. Withdrawal controlled on librium TID. Pt reports unsteadiness, weakness, numbness of LEs bilaterally. Rehab consultation pending Gen: awake, alert HEENT: normocephalic, atraumatic, good hearing acuity, moist mucous membranes Resp: good air exchange, breathing comfortably with no accessory muscle use CVS: good distal perfusion x 4, GI: soft, NTTP, ND : no SPT, no CVAT, westfall catheter is present MSK: no pitting edema, no clubbing Neuro: non-focal, moving all extremities Psych: cooperative, euthymic mood Hospital course: 47-year-old male with PMH of chronic alcohol abuse, repeated falls presented to the ED for alcohol withdrawal symptoms. In the ED, he was tachycardic with a rate of 105, BP of 153/114. CBC showed hemoglobin of 11.9 and platelet count of 77. Coagulation panel within normal limits. CMP showed sodium of 130, chloride of 93, glucose of 200, total bilirubin of 1.7, AST of 92, ALT of 51. Lactic acid was 2.8. Urinalysis 1+ ketone 1+ protein. Serum alcohol less than 10. Influenza RSV, COVID-19 negative. EKG showed sinus tachycardia. CT head and C- spine showed small anterior corner fractures involving the anterior and inferior endplate of C3 and C4, subtle lucency in the right lamina of C6, non displaced posterior medial right first and second rib fractures. Patient was placed on CIWA protocol and given Ativan as needed. Librium was added. Orthopedic surgery was consulted and recommended continuing hard collar with no need for surgical intervention at this time. On 10/16 Overnight, patient continued to be restless in the ED and was placed in restraints. Admitted to MICU for closer monitoring, and had received 16 mg of Ativan in 24 hours. Assessment: Delirium tremens Cervical spine fracture Rib fracture Frequent falls Macrocytic anemia Thrombocytopenia Transaminitis Resolved: Lactic acidosis Chronic conditions: Hypertension, Hypothyroidism Plan: Today, patient is low-grade febrile to 100.9, 113/85, heart rate 102, 99% on room air CBC demonstrated anemia down to 8.5 from 10.4, limits of 80 from 60 Basic metabolic panel showed sodium of 129, total protein of 5.4, albumin of 3.2 Magnesium was 1.8 Discussed case with pulmonology, patient may be stepped down to the floor. Consulted PMR for evaluation for IPR Continue Librium 20 mg 3 times a day Continue Ativan when necessary, last required dose was on 10/16 Patient is stable for transfer to the medical floor PT consultation Morphine PRN for pain control Continue Thiamine, Folic Acid, MVI Pt is Full Code Objective - Vital Signs Vital signs: Vital Signs Temp 100.9 F H 10/18/22 08:00 Pulse 102 H 10/18/22 08:00 Resp 18 10/18/22 08:00 BP 113/85 10/18/22 08:00 Pulse Ox 99 10/18/22 02:00 FiO2 Intake & Output 10/17/22 10/18/22 10/18/22 18:59 06:59 18:59 Intake Total 1380 Output Total 350 400 Balance 1030 -400 Weight 115 kg 115.3 kg Intake: IV 300 Sodium Chloride 0.9% 1, 300 000 ml @ 100 mls/hr IV . Q10H [facility] Rx#:[id number] Oral 1080 Output: Urine 350 400 Other: Voiding Method Urinal Urinal # Bowel Movements 0 - Labs CBC & Chem 7: 10/18/22 03:58 10/18/22 03:58 Labs: Abnormal Lab Results - Last 24 Hours (Table) 10/17/22 10/18/22 10/18/22 Range/Units 11:54 03:58 03:58 RBC 2.61 L (4.30-5.90) m/uL Hgb 8.5 L (13.0-17.5) gm/dL Hct 26.4 L (39.0-53.0) % MCV 101.1 H (80.0-100.0) fL RDW 15.8 H (11.5-15.5) % Plt Count 80 L (150-450) k/uL Lymphocytes # 0.6 L (1.0-4.8) k/uL Sodium 129 L (137-145) mmol/L POC Glucose (mg/dL) 127 H (70-110) mg/dL Calcium 8.1 L (8.4-10.2) mg/dL
--- NOTE | 2022-10-18 11:28 | P.CONS ---
History of Present Illness - Reason for Consult Consult date: 10/18/22 rehab recommendations/ possible IPR - Chief Complaint Falls, Cervical fractures - History of Present Illness Mr Dioni Burgos is a 47 y/o right/ left handed male who is going through a divorce. He lives with his mother in a story home, with YFN. Prior to admission, he was ambulating without an assistive device. He was independent for basic/advanced ADLs. Current driving: yes/no. Transportation by: . Retired: yes/no. Support system: mother He presented to [facility] on 10/14/22 with complaints of multiple falls and being found down on the ground. He was sober for 3 months, then relapsed about few weeks ago, and admits to drinking approximately 1 pint of Vodka everyday. He reports multiple falls , with worst one last Sunday when he tripped over a coffee table. He was started on CIWA protocol for ETOH withdrawal. Patient had an extensive evaluation on arrival including a head/cervical spine CT which demonstrated small anterior corner fractures involving the anterior and inferior endplate of the third and fourth vertebral bodies. The avulsion fracture is measured 2 mm at C3 and 3-4 mm at C4. The vertebral bodies are otherwise intact. There was also several lucency noted particularly in the right lamina of the C6. A nondisplaced fracture was not excluded. He was placed in a cervical collar. There was a small superficial scalp contusion overlying the left parietal region. No acute intracranial process. There were also nondisplaced posterior medial right first and second rib fractures at the costovertebral angle. He was placed in restraints for agitation and withdrawals. CBC on arrival shows a hemoglobin of 11.9, hematocrit 35.6, platelets 77. BMP shows sodium 130, potassium 3.8, chloride 93, serum bicarb 26, BUN 13, creatinine 1.03, glucose 200. Lactate was elevated at 2.8 and is down to 0.7. AST and ALT are mildly elevated. Negative for influenza, RSV, COVID-19. Serum alcohol level was less than 10 on arrival. He was transferred to the ICU for monitoring. Orthopedics was consulted, no surgical intervention needed. He was placed in a [place] hard cervical collar to wear at all times. PM&R consulted for rehab recommendations. Therapy evaluations reviewed; patient needing min assist with bed mobility, grooming, and UB dressing, mod assist with bathing and toileting, max assist with LB dressing. 10/18/22: Review of Systems negative unless otherwise stated in HPI Past Medical History Past Medical History: Hypertension, Thyroid Disorder Additional Past Medical History / Comment(s): Multiple falls, Obesity, BPH, ETOH abuse History of Any Multi-Drug Resistant Organisms: None Reported Past Surgical History: Orthopedic Surgery Additional Past Surgical History / Comment(s): ankle and knee surgery. Past Psychological History: Anxiety Smoking Status: Former smoker Past Alcohol Use History: Abuse, Daily Past Drug Use History: Marijuana Medications and Allergies Home Medications Medication Instructions Recorded Confirmed Type Levothyroxine Sodium [Synthroid] 200 mcg PO DAILY 10/15/22 10/15/22 History amLODIPine BESYLATE/BENAZEPRIL 1 cap PO DAILY 10/15/22 10/15/22 History [Lotrel 10-20 mg Capsule] hydrOXYzine HCL [Atarax] 25 mg PO TID PRN 10/15/22 10/15/22 History traZODone HCL [Desyrel] 50 mg PO HS PRN 10/15/22 10/15/22 History Allergies Allergy/AdvReac Type Severity Reaction Status Date / Time No Known Allergies Allergy Verified 10/15/22 10:49 Physical Exam Vitals: Vital Signs Temp Pulse Resp BP Pulse Ox 10/18/22 08:00 100.9 F H 102 H 18 113/85 10/18/22 02:00 99.2 F 100 17 137/84 99 10/17/22 20:00 99.4 F 104 H 112/74 91 L 10/17/22 14:00 99.1 F 79 16 128/87 99 Intake and Output 10/17/22 10/18/22 10/18/22 22:59 06:59 14:59 Intake Total 240 Output Total 200 400 Balance 40 -400 Intake: Oral 240 Output: Urine 200 400 Other: Voiding Method Urinal # Bowel Movements 0 Weight 115.3 kg EXAM; General: WDWN, male/female, NAD Head: Normocephalic, atraumatic. Eyes: Symmetric Ears: Symmetric. Hearing within normal limits. Mouth: Clear. Neck: Supple. Cardiac: Regular rate and rhythm. Calves supple, non tender, no edema Lungs: Breathing comfortably on RA. Chest symmetric. Abdomen: Soft, nontender. Extremities: Arthritic changes consistent with age. Neurological: Alert and oriented x . Speech is clear and fluent without paraphasic errors Cranial nerves: CN II-XII: intact. Sensation: Intact and symmetrical limbs. Musculoskeletal: ROM WFL EXCEPT: MMT UE Sh Abd EE EF FABD WE HG Right Left MMT LE HF KE DF EHL Right Left Reflexes Biceps Triceps Brachioradialis Patella Achilles Babinski Hoffmans Right Left Skin: Skin intact where visible to head, neck, and bilateral upper and lower extremities EXCEPT: Psych: Calm, cooperative Results CBC & Chem 7: 10/18/22 03:58 10/18/22 03:58 Labs: Abnormal Lab Results - Last 24 Hours (Table) 10/17/22 10/18/22 10/18/22 Range/Units 11:54 03:58 03:58 RBC 2.61 L (4.30-5.90) m/uL Hgb 8.5 L (13.0-17.5) gm/dL Hct 26.4 L (39.0-53.0) % MCV 101.1 H (80.0-100.0) fL RDW 15.8 H (11.5-15.5) % Plt Count 80 L (150-450) k/uL Lymphocytes # 0.6 L (1.0-4.8) k/uL Sodium 129 L (137-145) mmol/L POC Glucose (mg/dL) 127 H (70-110) mg/dL Calcium 8.1 L (8.4-10.2) mg/dL Assessment and Plan Assessment: # Fall resulting in small anterior corner fractures involving the anterior and inferior endplate of the third and fourth vertebral bodies. -Mcpherson J hard cervical collar on at all times #non displaced posterior medial right 1st and 2nd rib fracture at the costovertebral angle # Scalp lacerations # Acute ETOH withdrawal with DTs alcohol withdrawal seizure precautions fall precautions #transaminitis #lactic acidosis #thrombocytopenia secondary to alcohol abuse #Comorbidities: Benign essential hypertension, Hypothyroidism, Obesity, BMI 30 # Bowel/bladder -currently has westfall catheter, recommend TOV when able # Diet- regular # Pain Management -Tylenol 650 mg Q 6 prn, Morphine IV prn # DVT proph -defer to IM/Ortho # Your medical dx and management Goals: Modified Independent mobility and ADLS both basic and advanced; increased functional mobility/strength; increased balance, safety, endurance. Improvement in medical issues through your care. Barriers: fall risk, pain Discharge recommendation: IPR recommended, patient will need insurance authorization. FULL CONSULT TO FOLLOW WITH EXAM THIS AFTERNOON Patient seen and examined in coordination with Dr. Payton, note remotely prepped by Kamala Farr PA-C
[2022-10-19] MEDS: LEVOTHYROXINE 100 MCG TAB PO SCH (06:51)
--- NOTE | 2022-10-19 09:47 | P.PN ---
Subjective Progress Note Date: 10/19/22 On today's evaluation of 10/17/2022, the patient is being seen for a follow-up. The patient did not want to the care unit. The patient has a hard cervical collar and is being worn at all times. Is able to move his arms and legs without any limitation. As mentioned earlier, the patient has had multiple falls and he has a C3/C4 anterior inferior end plate avulsion fracture of the vertebral bodies. There is also loose. The level of the right cc 6 [place] a which may represent a nondisplaced fracture. He also has a fractures. He does have some limited shaking. No confusion. No agitation. No restlessness. The white cell count of 5.8 with a hemoglobin of 8.9. Sodium level is 29 and the BUN is at 8 with a creatinine of 0.6. Liver function tests are essentially within normal limits. The patient is receiving Ativan per protocol for DVT, and the patient is on a patch his blood pressures under better control in combination with Norvasc 10 mg by mouth daily. He is receiving morphine for pa in control for milligrams IV every 4 hours on a when necessary basis. Is also on thiamine. Librium started 20 mg by mouth 3 times a day. On 10/18/2022, the patient is fully alert and awake and communicating on room air oxygen. No signs of delirium at this point in time. The patient has no specific complaints other than some soreness in his feet bilaterally. He is still wearing a neck collar and I discussed the case with the spine surgeon and there is no surgical intervention for now. The patient will be wearing the neck collar for now and he'll be looking into subacute rehabilitation. He is still quite weak, unable to ambulate freely and he was able to take a few steps with the help of the nursing staff. In terms of his blood pressure control, his blood pressure is stable for now. He is on a clonidine patch 0.4 mg. He was also taken Norvasc 10 mg by mouth daily. He is on Librium and he has not required any Ativan. He is on thiamine and folate and is also on IV Protonix. He did spike a low-grade temperature today at 100.9 and this will be monitored. The rest of the blood work from today shows a white cell count of 5.5 with a hemoglobin of 8.5. Platelets counts have been low at 80. BUN is 11 with a creatinine of 0.8 and sodium levels of 129. Potassium levels at 3.9. LFTs were essentially within normal limits. 10/19/2022, the patient is sleeping this morning, easily arousable and communicating. No neurologic deficits. No confusion. No altered mentation. I s on room air oxygen. He continues to wear his neck collar. No new labs are available from today. Labs from yesterday were all noted and the sodium level was on 29 and a potassium level was 3.9 and his hemoglobin was 8.5 and the patient has chronic thrombocytopenia. He remains hemodynamically stable. Medications included Librium, no Ativan was given although this has been ordered as a backup should he develop any symptoms of delirium. Is also on Norvasc and Catapres patch and his blood pressure monitoring seems to be adequate at this point in time. He is looking to go to [facility] for rehabilitation Objective - Vital Signs Vital signs: Vital Signs Temp 99.4 F 10/19/22 02:00 Pulse 95 10/19/22 02:00 Resp 14 10/19/22 02:00 BP 101/67 10/19/22 02:00 Pulse Ox 97 10/19/22 02:00 FiO2 Intake & Output 10/18/22 10/19/22 10/19/22 18:59 06:59 18:59 Intake Total 820 720 Output Total 0 1400 Balance 820 -680 Intake: Intake, IV Titration 100 Amount Magnesium Sulfate-D5w Pmx 100 1 gm In Dextrose/Water 1 100ml.bag @ 100 mls/hr IVPB ONCE ONE Rx#: [id number] Oral 720 720 Output: Urine 0 1400 Other: Voiding Method Urinal Urinal # Voids 3 - Exam GENERAL EXAM: Lethargic, 47-year-old male, in a hard c-collar, fairly comfortable in no apparent distress. He is in soft restraints. The patient is currently on room air oxygen. HEAD: Normocephalic. Small anterior ecchymosis EYES: Normal reaction of pupils, equal size. NOSE: Clear with pink turbinates. THROAT: No erythema or exudates. NECK: No masses, no JVD. Heart c-collar in place CHEST: bruising at the left lower chest bruising without gross deformity LUNGS: Equal air entry with sonorous lung sounds. no crackles, wheeze, rhonchi or dullness. On room air. No conversational dyspnea or accessory muscle use.. CVS: S1 and S2 normal with no audible murmur, regular rhythm. No extra heart sounds ABDOMEN: Obese abdomen. No hepatosplenomegaly, active bowel sounds, no guarding or rigidity. SPINE: No scoliosis or deformity SKIN: No rashes CENTRAL NERVOUS SYSTEM: No focal deficits, tone equal in all 4 extremities. The patient is alert and oriented. He knows the time and the place and the year. No focal neurological deficits. EXTREMITIES: There is no peripheral edema, clubbing, or cyanosis. Peripheral pulses are intact. - Labs CBC & Chem 7: 10/18/22 03:58 10/18/22 03:58 Assessment and Plan Assessment: Acute alcohol withdrawal and delirium tremens, responding to CIWA protocol. The patient is awake and alert and the patient is currently on Librium and Ativan per protocol. Results on thiamine. He is receiving regular diet. No active signs of delirium tremens. Neurologically intact and the patient has currently recovered from his DVT Frequent falls, resulting in cervical spine and rib fractures. Head/cervical spine CT which demonstrated small anterior corner fractures involving the anterior and inferior endplate of the third and fourth vertebral bodies. The avulsion fracture is measured 2 mm at C3 and 3-4 mm at C4. The vertebral bodies are otherwise intact. There was also several lucency noted particularly in the right lamina of the C6. A nondisplaced fracture was not excluded. There was a small superficial scalp contusion overlying the left parietal region. No acute intracranial process. There were also nondisplaced posterior medial right first and second rib fractures at the costovertebral angle. Chest x-ray showed subtle rib irregularity at the left sixth rib level possibly acute vs chronic rib fracture. Thrombocytopenia, likely secondary to alcohol abuse, no new labs from today Elevated LFTs, likely secondary to alcohol abuse Benign essential hypertension Hypothyroidism Alcoholism, serum alcohol level less than 10 on arrival Obesity, BMI 30 Hyponatremia, sodium levels of 129 Generalized weakness and difficulty with mobility and unsteady gait. The patient will benefit from rehabilitation. Plan: Increase mobility as tolerated and he was able to move himself to a chair with a walker Awaiting transferring this patient to [facility] for rehabilitation Orthopedic surgeries spine surgery are both on the case, no surgical interventions Continues to wear the neck collar Continue Librium Ativan as needed, none was given over the past 24 hours Incentive spirometer Regular diet Fall precautions Seizure precautions Orthopedic consultation was obtained, no plans for surgical intervention at this time Continue hard c-collar Continue clonidine patch and Norvasc for blood pressure control in combination with Norvasc Monitor fever pattern No need for antibiotic coverage in the white cell count is within normal limits We will be moved out of the intensive care unit.
[2022-10-19] MEDS: PANTOPRAZOLE 40 MG/10 ML VIAL IVP SCH (09:54)
[2022-10-19] MEDS: FOLIC ACID 1 MG TAB PO SCH (09:54)
[2022-10-19] MEDS: MULTIVITAMINS, THERA 1 EACH TAB PO SCH (09:54)
[2022-10-19] MEDS: THIAMINE 100 MG/ML 2 ML VIAL IV SCH (10:57)
--- NOTE | 2022-10-19 14:45 | P.DS ---
Providers Date of admission: 10/15/22 01:29 Expected date of discharge: 10/19/22 Attending physician: Vasile Zamarripa MD Consults: 10/15/22 00:47 Consult Physician Routine Consulting Provider: Benedict Orellana Consult Reason/Comments: c3/c4 corner fractures. possible c6 fracture Do you want consulting provider notified?: Already Contacted 10/16/22 04:06 Consult Physician Routine Consulting Provider: Clyde Lloyd Consult Reason/Comments: DT requiring precedex Do you want consulting provider notified?: Already Contacted 10/16/22 12:20 Consult Physician Routine Consulting Provider: Hannah Yu Consult Reason/Comments: Eval cervical fractures Do you want consulting provider notified?: Already Contacted 10/18/22 09:36 Consult Physician Routine Consulting Provider: Danny Payton Consult Reason/Comments: IPR Do you want consulting provider notified?: Already Contacted Primary care physician: [facility] Course: Assessment: Delirium tremens Cervical spine fracture Rib fracture Frequent falls Macrocytic anemia Thrombocytopenia Transaminitis Resolved: Lactic acidosis Chronic conditions: Hypertension, Hypothyroidism Hospital course: 47-year-old male with PMH of chronic alcohol abuse, repeated falls presented to the ED for alcohol withdrawal symptoms. In the ED, he was tachycardic with a rate of 105, BP of 153/114. CBC showed hemoglobin of 11.9 and platelet count of 77. Coagulation panel within normal limits. CMP showed sodium of 130, chloride of 93, glucose of 200, total bilirubin of 1.7, AST of 92, ALT of 51. Lactic acid was 2.8. Urinalysis 1+ ketone 1+ protein. Serum alcohol less than 10. Influenza RSV, COVID-19 negative. EKG showed sinus tachycardia. CT head and C- spine showed small anterior corner fractures involving the anterior and inferior endplate of C3 and C4, subtle lucency in the right lamina of C6, non displaced posterior medial right first and second rib fractures. Patient was placed on CIWA protocol and given Ativan as needed. Librium was added. Orthopedic surgery was consulted and recommended continuing hard collar with no need for surgical intervention at this time. On 10/16 Overnight, patient continued to be restless in the ED and was placed in restraints. Admitted to MICU for closer monitoring, and had received 16 mg of Ativan in 24 hours. Patient did well in the ICU was quickly weaned off of Ativan. He was evaluated by orthospine surgery and determine no need for surgical intervention, but recommended [place] collar and follow up outpatient. Patient was subsequently noted to be weak in bilateral lower extremities, and was seen by PT/OT who recommended inpatient rehabilitation. Seen by [facility] who agreed that inpatient rehabilitation would be ideal for this patient's recovery, insurance approved transfer to [facility] and patient was discharged. I spent 45 minutes coordinating this discharge on 10/19 See same day progress note for physical exam Patient Condition at Discharge: Good Plan - Discharge Summary Discharge Rx Participant: No New Discharge Prescriptions: New Multivitamins, Thera [Multivitamin (formulary)] 1 each PO DAILY tab Thiamine [Vitamin B-1] 100 mg PO DAILY #14 tablet cloNIDine HCL [Catapres] 0.1 mg PO TID PRN #30 tab PRN Reason: Blood Pressure - High Folic Acid 1 mg PO DAILY tab Acetaminophen Tab [Tylenol] 650 mg PO Q6HR PRN tab PRN Reason: Mild Pain Or Fever > 100.5 Continue traZODone HCL [Desyrel] 50 mg PO HS PRN PRN Reason: Insomnia Levothyroxine Sodium [Synthroid] 200 mcg PO DAILY amLODIPine BESYLATE/BENAZEPRIL [Lotrel 10-20 mg Capsule] 1 cap PO DAILY hydrOXYzine HCL [Atarax] 25 mg PO TID PRN PRN Reason: Anxiety Discharge Medication List Levothyroxine Sodium [Synthroid] 200 mcg PO DAILY 10/15/22 [History] amLODIPine BESYLATE/BENAZEPRIL [Lotrel 10-20 mg Capsule] 1 cap PO DAILY 10/15/22 [History] hydrOXYzine HCL [Atarax] 25 mg PO TID PRN 10/15/22 [History] traZODone HCL [Desyrel] 50 mg PO HS PRN 10/15/22 [History] Acetaminophen Tab [Tylenol] 650 mg PO Q6HR PRN tab 10/19/22 [Rx] Folic Acid 1 mg PO DAILY tab 10/19/22 [Rx] Multivitamins, Thera [Multivitamin (formulary)] 1 each PO DAILY tab 10/19/22 [Rx] Thiamine [Vitamin B-1] 100 mg PO DAILY #14 tablet 10/19/22 [Rx] cloNIDine HCL [Catapres] 0.1 mg PO TID PRN #30 tab 10/19/22 [Rx] Follow up Appointment(s)/Referral(s): Gordon Dee PAC [PHYSICIAN CUTTER OPERATOR HELPER] - 2 Weeks (Patient may follow-up with Gordon Dee PA-C or Dr. Kali Yu at [facility] in 2 weeks following discharge. ) Amena Costello [Nurse Lithographic Proofer] - 1-2 days Patient Instructions/Handouts: Dehydration (ED), Rib Fracture (DC), Cervical Fracture (ED), Alcohol Intoxication (ED), Abuse of Alcohol (ED), At-Risk Alcohol Use (ED), Acute Nausea and Vomiting (ED), Alcohol Withdrawal (ED), Anxiety (ED), Fall Prevention (ED), Alcohol Dependence (ED), Alcohol Use Disorder (ED) Activity/Diet/Wound Care/Special Instructions: 1. Keep [place] hard cervical collar intact at all times except while bathing/showering 2. Patient may transition to and must wear plastic and Styrofoam hard cervical collar while bathing/showering 3. No overhead activities 4. No lifting greater than 10 pounds 5. Avoid any excessive range of motion the cervical spine Discharge Disposition: TRANSFER TO SNF/ECF
[2022-10-19 15:16] VITALS: BP 127/78; PULSE 98; RESP 16; TEMP 98
== END 2022-10-19 18:22 | DRG 897 ==
LOC: EC 23:02 → 4SSUR 10-15 01:29 → 2SICU 10-16 01:30 → 5NMEDONC 10-19 14:43
PROVIDERS: ADMIT Internal Medicine; ATTEND Internal Medicine
PROC: HZ2ZZZZ Detoxification Services for Substance Abuse Treatment (ICD-10-PCS; principal; 2022-10-15)
PROC: 05HA33Z Insertion of Infusion Device into Left Brachial Vein, Percutaneous Approach (ICD-10-PCS; 2022-10-16)
DX: F10.231 Alcohol dependence with withdrawal delirium (principal); S22.49XA Multiple fractures of ribs, unspecified side, initial encounter for closed fracture; S12.300A Unspecified displaced fracture of fourth cervical vertebra, initial encounter for closed fracture; S12.200A Unspecified displaced fracture of third cervical vertebra, initial encounter for closed fracture; S12.500A Unspecified displaced fracture of sixth cervical vertebra, initial encounter for closed fracture; E87.20 Acidosis, unspecified; E87.1 Hypo-osmolality and hyponatremia; R17 Unspecified jaundice; S00.03XA Contusion of scalp, initial encounter; S01.01XA Laceration without foreign body of scalp, initial encounter; R56.9 Unspecified convulsions; R74.01 Elevation of levels of liver transaminase levels; D69.59 Other secondary thrombocytopenia; R79.89 Other specified abnormal findings of blood chemistry; I10 Essential (primary) hypertension; E03.9 Hypothyroidism, unspecified; Z68.30 Body mass index [BMI] 30.0-30.9, adult; Z79.890 Hormone replacement therapy; E66.9 Obesity, unspecified; M50.321 Other cervical disc degeneration at C4-C5 level; R50.9 Fever, unspecified; D53.9 Nutritional anemia, unspecified; E86.0 Dehydration; R26.81 Unsteadiness on feet; F41.9 Anxiety disorder, unspecified; N40.0 Benign prostatic hyperplasia without lower urinary tract symptoms; R29.6 Repeated falls; W18.30XA Fall on same level, unspecified, initial encounter; R00.0 Tachycardia, unspecified; Y92.009 Unspecified place in unspecified non-institutional (private) residence as the place of occurrence of the external cause; Z20.822 Contact with and (suspected) exposure to COVID-19; Z78.1 Physical restraint status; Z79.899 Other long term (current) drug therapy; Z91.81 History of falling; R41.0 Disorientation, unspecified; Z87.891 Personal history of nicotine dependence
CPT/HCPCS: 36415; 70450; 70486; 71046; 72125; 72170; 80048; 80053; 80320; 81001; 83605; 83735; 84132; 85025; 85027; 85610; 85730; 87636; 90471; 90715; 93005; 96374; 96375; 96376

== ENCOUNTER 2023-06-08 10:58 | Observation (INO) | payer BC, OTHER ==
--- NOTE | 2023-06-08 11:25 | ED ---
General Adult HPI - General Source: patient, RN notes reviewed Mode of arrival: ambulatory Limitations: no limitations <Saba Babcock - Last Filed: 06/08/23 11:24> <Clyde Mobley - Last Filed: 06/08/23 15:24> - General Stated complaint: etoh Time Seen by Provider: 06/08/23 11:24 - History of Present Illness Initial comments: Quick note: Patient is a 47-year-old male presented to ER with a chief complaint of EtOH. Patient sent from [facility] for withdrawal. Patient says last drink was earlier today. Denies any history of DTs or seizures. (Saba Babcock) 47-year-old from [place] [facility] presenting for alcohol intoxication. Patient was sent in from [facility] stating that he cannot return to [facility] until Sunday. Patient requesting detox. No physical complaints. (Clyde Mobley) - Related Data Home Medications Medication Instructions Recorded Confirmed Levothyroxine Sodium [Synthroid] 200 mcg PO DAILY 10/15/22 10/15/22 amLODIPine BESYLATE/BENAZEPRIL 1 cap PO DAILY 10/15/22 10/15/22 [Lotrel 10-20 mg Capsule] hydrOXYzine HCL [Atarax] 25 mg PO TID PRN 10/15/22 10/15/22 traZODone HCL [Desyrel] 50 mg PO HS PRN 10/15/22 10/15/22 Previous Rx's Medication Instructions Recorded Acetaminophen Tab [Tylenol] 650 mg PO Q6HR PRN tab 10/19/22 Folic Acid 1 mg PO DAILY tab 10/19/22 Multivitamins, Thera [Multivitamin 1 each PO DAILY tab 10/19/22 (formulary)] Thiamine [Vitamin B-1] 100 mg PO DAILY #14 tablet 10/19/22 cloNIDine HCL [Catapres] 0.1 mg PO TID PRN #30 tab 10/19/22 Allergies Allergy/AdvReac Type Severity Reaction Status Date / Time No Known Allergies Allergy Verified 06/08/23 11:22 Review of Systems ROS Other: All systems not noted in ROS Statement are negative. <Saba Babcock - Last Filed: 06/08/23 11:24> ROS Other: All systems not noted in ROS Statement are negative. <Clyde Mobley - Last Filed: 06/08/23 15:24> ROS Statement: Those systems with pertinent positive or pertinent negative responses have been documented in the HPI. Past Medical History Past Medical History: Hypertension, Thyroid Disorder Additional Past Medical History / Comment(s): Multiple falls, Obesity, BPH, ETOH abuse History of Any Multi-Drug Resistant Organisms: None Reported Past Surgical History: Orthopedic Surgery Additional Past Surgical History / Comment(s): ankle and knee surgery. Past Psychological History: Anxiety Smoking Status: Vaper Past Alcohol Use History: Abuse, Daily Past Drug Use History: Marijuana <Saba Babcock - Last Filed: 06/08/23 11:24> General Exam Limitations: no limitations <Saba Babcock - Last Filed: 06/08/23 11:24> General appearance: alert, appears intoxicated Head exam: Present: atraumatic, normocephalic Eye exam: Present: normal appearance, PERRL ENT exam: Present: normal exam Neck exam: Present: normal inspection. Absent: tenderness, meningismus Respiratory exam: Present: normal lung sounds bilaterally. Absent: respiratory distress Cardiovascular Exam: Present: regular rate, normal rhythm Extremities exam: Present: normal inspection, normal capillary refill Neurological exam: Present: alert, oriented X3 Psychiatric exam: Present: flat affect Skin exam: Present: warm, dry, intact. Absent: cyanosis, diaphoretic <Clyde Mobley - Last Filed: 06/08/23 15:24> - General Exam Comments Initial Comments: Visual Physical Exam Vital signs reviewed General: Well-appearing, nontoxic, no acute distress. Head: Normocephalic, atraumatic Eyes: PERRLA, EOMI ENT: Airway patent Chest: Nonlabored breathing Skin: No visual rash, normal skin tone Neuro: Alert and oriented 3 Musculoskeletal: No gross abnormalities (Saba Babcock) Course Vital Signs 06/08/23 11:21 Temperature 98 F Pulse Rate 96 Respiratory 20 Rate Blood Pressure 124/79 O2 Sat by Pulse 99 Oximetry Medical Decision Making <Saba Babcock - Last Filed: 06/08/23 11:24> - Lab Data Result diagrams: 06/08/23 11:34 06/08/23 11:34 <Clyde Mobley - Last Filed: 06/08/23 15:24> - Medical Decision Making I performed the quick note portion of this chart. Electronically signed by Saba Babcock PA-C (Saba Babcock) Was pt. sent in by a medical professional or institution (ABBI Wheatley, STORAGE BATTERY INSPECTOR AND TESTER, urgent care, hospital, or penitentiary...) When possible be specific @ -No Did you speak to anyone other than the patient for history (EMS, parent, family, police, friend...)? What history was obtained from this source @ -No Did you review nursing and triage notes (agree or disagree)? Why? @ -I reviewed and agree with nursing and triage notes Were old charts reviewed (outside hosp., previous admission, EMS record, old EKG, old radiological studies, urgent care reports/EKG's, penitentiary records)? Report findings @ -No old charts were reviewed Differential Diagnosis (chest pain, altered mental status, abdominal pain women, abdominal pain men, vaginal bleeding, weakness, fever, dyspnea, syncope, headache, dizziness, GI bleed, back pain, seizure, CVA, palpatations, mental health, musculoskeletal)? @ -[Alcohol intoxication, alcohol abuse EKG interpreted by me (3pts min.). @ -As above X-rays interpreted by me (1pt min.). @ -None done CT interpreted by me (1pt min.). @ -None done U/S interpreted by me (1pt. min.). @ -None done What testing was considered but not performed or refused? (CT, X-rays, U/S, labs)? Why? @ -None What meds were considered but not given or refused? Why? @ -None Did you discuss the management of the patient with other professionals (professionals i.e. ABBI Wheatley, STORAGE BATTERY INSPECTOR AND TESTER, lab, RT, psych nurse, social work specialist, construction supervisor/carpenter, teacher, correctional officer lieutenant, case hardener)? Give summary @ -No Was smoking cessation discussed for >3mins.? @ -No Was critical care preformed (if so, how long)? @ -No Were there social determinants of health that impacted care today? How? (Homelessness, low income, unemployed, alcoholism, drug addiction, transportatio n, low edu. Level, literacy, decrease access to med. care, ch[facility], rehab)? @ -No Was there de-escalation of care discussed even if they declined (Discuss DNR or withdrawal of care, Hospice)? DNR status @ -No What co-morbidities impacted this encounter? (DM, HTN, Smoking, COPD, CAD, Cancer, CVA, ARF, Chemo, Hep., AIDS, mental health diagnosis, sleep apnea, morbid obesity)? @ -Pretension, alcohol abuse Was patient admitted / discharged? Hospital course, mention meds given and route, prescriptions, significant lab abnormalities, going to OR and other pertinent info. @ -47-year-old male with acute alcohol intoxication, sent from [facility] [place]. Patient's alcohol is 380. He will be observed on [facility] with benzodiazepines for withdrawal awaiting sobriety and possible return to [facility]. Undiagnosed new problem with uncertain prognosis? @ -No Drug Therapy requiring intensive monitoring for toxicity (Heparin, Nitro, Insulin, Cardizem)? @ -No Were any procedures done? @ -No Diagnosis/symptom? @Alcohol intoxication, Acute, or Chronic, or Acute on Chronic? @ -Acute on chronic Uncomplicated (without systemic symptoms) or Complicated (systemic symptoms)? @ -Default Side effects of treatment? @ -No Exacerbation, Progression, or Severe Exacerbation? @ -No Poses a threat to life or bodily function? How? (Chest pain, [place], [place], pneumonia, PE, COPD, DKA, ARF, appy, cholecystitis, CVA, Diverticulitis, Homicidal, Suicidal, threat to staff... and all critical care pts) @ -Yes, alcohol withdrawal, delirium tremens (Clyde Mobley) - Lab Data Lab Results 06/08/23 06/08/23 Range/Units 11:34 11:34 WBC 4.6 (3.8-10.6) k/uL RBC 4.24 L (4.30-5.90) m/uL Hgb 13.3 (13.0-17.5) gm/dL Hct 39.2 (39.0-53.0) % MCV 92.7 (80.0-100.0) fL MCH 31.4 (25.0-35.0) pg MCHC 33.9 (31.0-37.0) g/dL RDW 15.7 H (11.5-15.5) % Plt Count 107 L (150-450) k/uL MPV 7.8 Neutrophils % 64 % Lymphocytes % 26 % Monocytes % 5 % Eosinophils % 3 % Basophils % 1 % Neutrophils # 3.0 (1.3-7.7) k/uL Lymphocytes # 1.2 (1.0-4.8) k/uL Monocytes # 0.2 (0-1.0) k/uL Eosinophils # 0.1 (0-0.7) k/uL Basophils # 0.0 (0-0.2) k/uL Sodium 136 L (137-145) mmol/L Potassium 4.0 (3.5-5.1) mmol/L Chloride 97 L (98-107) mmol/L Carbon Dioxide 27 (22-30) mmol/L Anion Gap 12 mmol/L BUN 9 (9-20) mg/dL Creatinine 0.67 (0.66-1.25) mg/dL Est GFR (CKD-EPI)AfAm >90 (>60 ml/min/1.73 sqM) Est GFR (CKD-EPI)NonAf >90 (>60 ml/min/1.73 sqM) Glucose 108 H (74-99) mg/dL Calcium 8.5 (8.4-10.2) mg/dL Magnesium 1.7 (1.6-2.3) mg/dL Total Bilirubin 0.8 (0.2-1.3) mg/dL AST 121 H (17-59) U/L ALT 56 H (4-49) U/L Alkaline Phosphatase 102 (38-126) U/L Total Protein 7.1 (6.3-8.2) g/dL Albumin 4.4 (3.5-5.0) g/dL Serum Alcohol 383 H* mg/dL Disposition <Saba Babcock - Last Filed: 06/08/23 11:24> Is patient prescribed a controlled substance at d/c from ED?: No Time of Disposition: 15:24 <Clyde Mobley - Last Filed: 06/08/23 15:24> Clinical Impression: Alcohol abuse, Alcoholic intoxication Disposition: ADMITTED IP TO THIS HOSP Condition: Stable Referrals: Zuly Sanders MD [Primary Care Provider] - 1-2 days
[2023-06-08 11:39] LABS: Basophils % (A) 1 %; Eosinophils # (A) 0.1 k/uL (0-0.7); Eosinophils % (A) 3 %; HCT 39.2 % (39.0-53.0); HGB 13.3 gm/dL (13.0-17.5); Lymphocytes # (A) 1.2 k/uL (1.0-4.8); Lymphocytes % (A) 26 %; MCH 31.4 pg (25.0-35.0); MCHC 33.9 g/dL (31.0-37.0); MCV 92.7 fL (80.0-100.0); Mean Platelet Volume 7.8; Monocytes # (A) 0.2 k/uL (0-1.0); Monocytes % (A) 5 %; Neutrophils % (A) 64 %; Platelet Count 107 k/uL (150-450); RBC 4.24 m/uL (4.30-5.90); RDW 15.7 % (11.5-15.5); WBC 4.6 k/uL (3.8-10.6)
[2023-06-08 11:54] LABS: ALT 56 U/L (4-49); AST 121 U/L (17-59); African American GFR (CKD) >90 (>60 ml/min/1.73 sqM); Albumin 4.4 g/dL (3.5-5.0); Alkaline Phosphatase 102 U/L (38-126); Anion Gap 12 mmol/L; Blood Urea Nitrogen 9 mg/dL (9-20); Calcium 8.5 mg/dL (8.4-10.2); Carbon Dioxide 27 mmol/L (22-30); Chloride 97 mmol/L (98-107); Glucose 108 mg/dL (74-99); Magnesium 1.7 mg/dL (1.6-2.3); Non-African American GFR(CKD) >90 (>60 ml/min/1.73 sqM); Sodium 136 mmol/L (137-145); Total Bilirubin 0.8 mg/dL (0.2-1.3); Total Protein 7.1 g/dL (6.3-8.2)
[2023-06-08 12:31] LABS: Alcohol 383 mg/dL
[2023-06-08] MEDS ORDERED: LORazepam 2 MG/ML INJ IV PRN (15:20)
[2023-06-08] MEDS ORDERED: NALOXONE 0.4 MG/ML 1 ML VIAL IV PRN (15:20)
[2023-06-08] MEDS: SODIUM CHLORIDE 0.9% 1,000 ML IV SCH (15:43)
[2023-06-08] MEDS: THIAMINE 100 MG/ML 2 ML VIAL IM STA (15:55)
--- NOTE | 2023-06-08 16:39 | P.HPIM ---
History of Present Illness H&P Date: 06/08/23 47 year old M with PMH of HTN, hypothyroidism presents to the ED from [place]. He was sent from [place] due to intoxication. Reports drinking a 1/5th of hard liquid daily. Stressors include passing of his father and divorce within the last 3 years. He endorses h/o withdrawal symptoms but no seizures. He denies any other complaints. In the ED he underwent extensive evaluation. Vital signs stable besides HR 96. CBC RBC 4.24, Plt 107. CMP Na 136, Cl 97, glu 108, AST 121, ALT 56. Mag 1.7. Serum alcohol 383. Patient is admitted for alcohol intoxication with impending withdrawal. Vital signs reviewed General: non toxic, no distress, appears at stated age, normal weight Derm: no unusual rashes/lesions, warm, posterior scalp laceration Head: atraumatic, normocephalic, symmetric Eyes: EOMI, no lid lag, anicteric sclera ENT: Nose and ears atraumatic Neck: No cervical lymphadenopathy, trachea midline, supple Cardiovascular: S1S2 tachy, no murmur Lungs: CTA bilateral, no rhonchi, no rales, no accessory muscle use Abdominal: soft, nontender to palpation, no guarding Ext: muscle strength 4 out of 5 in all 4 extremities grossly, no gross muscle atrophy, no contractures, Neuro: no gross focal neuro deficits Psych: Alert, oriented to self and place, not oriented to time Based on my assessment of this patient, this patient meets a high complexity level of care. Patient has an acute diagnosis of alcohol intoxication with impending withdrawal that poses a threat to life or bodily function. Alcohol intoxication with impending withdrawal: Ativan IV PRN per CIWA scale. Thiamine 100 mg PO QD. Librium 25 mg PO TID. Transaminits: Likely due to EtOH abuse. Thrombocytopenia: Likely due to EtOH abuse. Chronic conditions: HTN, hypothyroidism CODE STATUS: FULL CODE DVT Prophylaxis: Lovenox. GI Prophylaxis: Designated medical POA if patient is not able to make medical decisions for themselves: Son I have reviewed the following performance test consultant notes: ED note. I have reviewed the results of the following tests: As above. I have ordered the following tests: As above. I have discussed the care of this patient with the following independent historian: I have independently interpreted the following test below: I have discussed the management of this patient with the following physician: Past Medical History Past Medical History: Hypertension, Thyroid Disorder Additional Past Medical History / Comment(s): Multiple falls, Obesity, BPH, ETOH abuse History of Any Multi-Drug Resistant Organisms: None Reported Past Surgical History: Orthopedic Surgery Additional Past Surgical History / Comment(s): ankle and knee surgery. Past Psychological History: Anxiety Smoking Status: Vaper Past Alcohol Use History: Abuse, Daily Past Drug Use History: Marijuana Medications and Allergies Home Medications Medication Instructions Recorded Confirmed Type Levothyroxine Sodium [Synthroid] 200 mcg PO DAILY 10/15/22 10/15/22 History amLODIPine BESYLATE/BENAZEPRIL 1 cap PO DAILY 10/15/22 10/15/22 History [Lotrel 10-20 mg Capsule] hydrOXYzine HCL [Atarax] 25 mg PO TID PRN 10/15/22 10/15/22 History traZODone HCL [Desyrel] 50 mg PO HS PRN 10/15/22 10/15/22 History Acetaminophen Tab [Tylenol] 650 mg PO Q6HR PRN tab 10/19/22 Rx Folic Acid 1 mg PO DAILY tab 10/19/22 Rx Multivitamins, Thera [Multivitamin 1 each PO DAILY tab 10/19/22 Rx (formulary)] Thiamine [Vitamin B-1] 100 mg PO DAILY #14 tablet 10/19/22 Rx cloNIDine HCL [Catapres] 0.1 mg PO TID PRN #30 tab 10/19/22 Rx Allergies Allergy/AdvReac Type Severity Reaction Status Date / Time No Known Allergies Allergy Verified 06/08/23 11:22 Physical Exam Vitals: Vital Signs Temp Pulse Resp BP Pulse Ox 06/08/23 11:21 98 F 96 20 124/79 99 Intake and Output 06/08/23 06/08/23 06/08/23 06:59 14:59 22:59 Other: Weight 117.934 kg Results CBC & Chem 7: 06/08/23 11:34 06/08/23 11:34 Labs: Abnormal Lab Results - Last 24 Hours (Table) 06/08/23 06/08/23 Range/Units 11:34 11:34 RBC 4.24 L (4.30-5.90) m/uL RDW 15.7 H (11.5-15.5) % Plt Count 107 L (150-450) k/uL Sodium 136 L (137-145) mmol/L Chloride 97 L (98-107) mmol/L Glucose 108 H (74-99) mg/dL AST 121 H (17-59) U/L ALT 56 H (4-49) U/L Serum Alcohol 383 H* mg/dL
[2023-06-08] MEDS: chlordiazePOXIDE 25 MG CAP PO SCH (17:59)
[2023-06-08] MEDS: LORazepam 2 MG/ML INJ IV PRN (23:51)
[2023-06-09] MEDS: LEVOTHYROXINE 100 MCG TAB PO SCH (06:48)
[2023-06-09] MEDS: amLODIPine 10 MG TAB PO SCH (08:15)
[2023-06-09] MEDS: lisinopriL 20 MG TAB PO SCH (08:15)
[2023-06-09] MEDS: THIAMINE 100 MG TAB PO SCH (08:15)
[2023-06-09] MEDS: ENOXAPARIN 40 MG/0.4 ML SYRINGE SQ SCH (08:16)
--- NOTE | 2023-06-09 11:01 | P.PN ---
Subjective Progress Note Date: 06/09/23 47 year old M with PMH of HTN, hypothyroidism presents to the ED from [place]. He was sent from [place] due to intoxication. Reports drinking a 1/5th of hard liquid daily. Stressors include passing of his father and divorce within the last 3 years. He endorses h/o withdrawal symptoms but no seizures. He denies any other complaints. In the ED he underwent extensive evaluation. Vital signs stable besides HR 96. CBC RBC 4.24, Plt 107. CMP Na 136, Cl 97, glu 108, AST 121, ALT 56. Mag 1.7. Serum alcohol 383. Patient is admitted for alcohol intoxication with impending withdrawal. Started on CIWA protocol and given Ativan as needed. Started on Librium. 06/08 Patient was seen and examined. CIWA 5. He reports feeling shaky. Received Ativan 1 mg IV and Valium 5 mg over the past 24H. He appears shaky. BP is 157/102 HR 98 during the encounter. Vital signs reviewed General: non toxic, no distress, appears at stated age, normal weight Derm: no unusual rashes/lesions, warm Head: atraumatic, normocephalic, symmetric Eyes: EOMI, no lid lag, anicteric sclera ENT: Nose and ears atraumatic Neck: No cervical lymphadenopathy, trachea midline, supple Cardiovascular: S1S2 tachy, no murmur Lungs: CTA bilateral, no rhonchi, no rales, no accessory muscle use Ext: muscle strength 4 out of 5 in all 4 extremities grossly, no gross muscle atrophy, no contractures, Neuro: no gross focal neuro deficits, generalized tremors Psych: Alert, oriented x 3 Based on my assessment of this patient, this patient meets a high complexity level of care. Patient has an acute diagnosis of alcohol intoxication with impending withdrawal that poses a threat to life or bodily function. Alcohol intoxication with impending withdrawal: Ativan IV PRN per CIWA scale. Thiamine 100 mg PO QD. Librium increased to 50 mg PO TID. Plans to monitor the patient for one more day as alcohol withdrawal can worsening over the next 48 hours. Hypertension: Lisinopril 20 mg PO QD. Likely due to EtOH withdrawal. Tachycardia: Likely due to EtOH withdrawal. Transaminits: Likely due to EtOH abuse. Thrombocytopenia: Likely due to EtOH abuse. Chronic conditions: Hypothyroidism CODE STATUS: FULL CODE DVT Prophylaxis: Lovenox. GI Prophylaxis: Designated medical POA if patient is not able to make medical decisions for themselves: Son I have reviewed the following biztalk consultant notes: I have reviewed the results of the following tests: I have ordered the following tests: CBC, CMP for tomorrow morning. I have discussed the care of this patient with the following independent historian: I have independently interpreted the following test below: I have discussed the management of this patient with the following physician: Objective - Vital Signs Vital signs: Vital Signs Temp 98 F 06/08/23 11:21 Pulse 86 06/09/23 08:14 Resp 18 06/09/23 08:14 BP 171/101 06/09/23 08:14 Pulse Ox 97 06/09/23 08:14 FiO2 Intake & Output 06/08/23 06/09/23 06/09/23 18:59 06:59 18:59 Weight 117.934 kg - Labs CBC & Chem 7: 06/08/23 11:34 06/08/23 11:34 Labs: Abnormal Lab Results - Last 24 Hours (Table) 06/08/23 06/08/23 Range/Units 11:34 11:34 RBC 4.24 L (4.30-5.90) m/uL RDW 15.7 H (11.5-15.5) % Plt Count 107 L (150-450) k/uL Sodium 136 L (137-145) mmol/L Chloride 97 L (98-107) mmol/L Glucose 108 H (74-99) mg/dL AST 121 H (17-59) U/L ALT 56 H (4-49) U/L Serum Alcohol 383 H* mg/dL
[2023-06-09] MEDS: LORazepam 2 MG/ML INJ IV PRN (13:53)
[2023-06-09] MEDS: chlordiazePOXIDE 25 MG CAP PO SCH (15:48)
[2023-06-10 08:40] LABS: HCT 35.5 % (39.0-53.0); HGB 12.1 gm/dL (13.0-17.5); MCH 31.8 pg (25.0-35.0); MCHC 34.1 g/dL (31.0-37.0); MCV 93.4 fL (80.0-100.0); Mean Platelet Volume 8.4; RDW 15.7 % (11.5-15.5); WBC 5.4 k/uL (3.8-10.6)
[2023-06-10 08:55] LABS: ALT 32 U/L (4-49); AST 48 U/L (17-59); African American GFR (CKD) >90 (>60 ml/min/1.73 sqM); Albumin 3.3 g/dL (3.5-5.0); Albumin/Globulin Ratio 1.4; Alkaline Phosphatase 76 U/L (38-126); Anion Gap 5 mmol/L; Blood Urea Nitrogen 12 mg/dL (9-20); Calcium 8.6 mg/dL (8.4-10.2); Carbon Dioxide 29 mmol/L (22-30); Chloride 95 mmol/L (98-107); Globulin 2.4 g/dL; Glucose 104 mg/dL (74-99); Non-African American GFR(CKD) >90 (>60 ml/min/1.73 sqM); Potassium 3.4 mmol/L (3.5-5.1); Sodium 129 mmol/L (137-145); Total Bilirubin 1.4 mg/dL (0.2-1.3); Total Protein 5.7 g/dL (6.3-8.2)
[2023-06-10 08:59] LABS: Platelet Count 72 k/uL (150-450)
[2023-06-10] MEDS: HYDROcodone/APAP 5-325MG 1 EACH TAB PO STA (11:57)
--- NOTE | 2023-06-10 12:59 | P.PN ---
Subjective Progress Note Date: 06/10/23 47 year old M with PMH of HTN, hypothyroidism presents to the ED from [place]. He was sent from [place] due to intoxication. Reports drinking a 1/5th of hard liquid daily. Stressors include passing of his father and divorce within the last 3 years. He endorses h/o withdrawal symptoms but no seizures. He denies any other complaints. In the ED he underwent extensive evaluation. Vital signs stable besides HR 96. CBC RBC 4.24, Plt 107. CMP Na 136, Cl 97, glu 108, AST 121, ALT 56. Mag 1.7. Serum alcohol 383. Patient is admitted for alcohol intoxication with impending withdrawal. Started on CIWA protocol and given Ativan as needed. Started on Librium. 06/08 Patient was seen and examined. CIWA 5. He reports feeling shaky. Received Ativan 1 mg IV and Valium 5 mg over the past 24H. He appears shaky. BP is 157/102 HR 98 during the encounter. 06/09 Patient was seen and examined. Withdrawal symptoms well controlled. Complains of right ankle pain. He is medically stable for discharge today [facility] there is paperwork from [place] that states he can return back to [place] on Sunday. BP 123/75 HR 91. CBC Hg 12.1 Hct 35.5 Plt 72. CMP Na 129, K 3.4, Cl 95, glu 104, T. Bili 1.4, alb 3.3. Vital signs reviewed General: non toxic, no distress, appears at stated age, normal weight Derm: no unusual rashes/lesions, warm Head: atraumatic, normocephalic, symmetric Eyes: EOMI, no lid lag, anicteric sclera ENT: Nose and ears atraumatic Neck: No cervical lymphadenopathy, trachea midline, supple Cardiovascular: S1S2 reg, no murmur Lungs: CTA bilateral, no rhonchi, no rales, no accessory muscle use Ext: muscle strength 4 out of 5 in all 4 extremities grossly, no gross muscle atrophy, no contractures, Neuro: no gross focal neuro deficits, generalized tremors Psych: Alert, oriented x 3 Based on my assessment of this patient, this patient meets a high complexity level of care. Patient has an acute diagnosis of alcohol intoxication with impending withdrawal that poses a threat to life or bodily function. Alcohol intoxication with impending withdrawal: Ativan IV PRN per CIWA scale. Thiamine 100 mg PO QD. Librium 50 mg PO TID. Discharge to [place] tomorrow. HypoNa: Apparently patient was not getting fluids while in the ED. Start NS 100 cc/hr. Repeat BMP tomorrow. HypoK: KCl 40 meq PO x 1 today. Hypertension: Lisinopril 20 mg PO QD. Likely due to EtOH withdrawal. Tachycardia: Likely due to EtOH withdrawal. Transaminits: Likely due to EtOH abuse. Thrombocytopenia: Likely due to EtOH abuse. Chronic conditions: Hypothyroidism CODE STATUS: FULL CODE DVT Prophylaxis: Lovenox. GI Prophylaxis: Designated medical POA if patient is not able to make medical decisions for them selves: Son I have reviewed the following treasury management sales consultant notes: I have reviewed the results of the following tests: CBC, CMP. I have ordered the following tests: BMP. I have discussed the care of this patient with the following independent historian: I have independently interpreted the following test below: I have discussed the management of this patient with the following physician: Objective - Vital Signs Vital signs: Vital Signs Temp 98.0 F 06/10/23 07:00 Pulse 91 06/10/23 07:00 Resp 14 06/10/23 09:16 BP 123/75 06/10/23 12:39 Pulse Ox 99 06/10/23 07:00 FiO2 Intake & Output 06/09/23 06/10/23 06/10/23 18:59 06:59 18:59 Other: Voiding Method Toilet - Labs CBC & Chem 7: 06/10/23 07:20 06/10/23 07:20 Labs: Abnormal Lab Results - Last 24 Hours (Table) 06/10/23 06/10/23 Range/Units 07:20 07:20 RBC 3.80 L (4.30-5.90) m/uL Hgb 12.1 L (13.0-17.5) gm/dL Hct 35.5 L (39.0-53.0) % RDW 15.7 H (11.5-15.5) % Plt Count 72 L (150-450) k/uL Sodium 129 L (137-145) mmol/L Potassium 3.4 L (3.5-5.1) mmol/L Chloride 95 L (98-107) mmol/L Glucose 104 H (74-99) mg/dL Total Bilirubin 1.4 H (0.2-1.3) mg/dL Total Protein 5.7 L (6.3-8.2) g/dL Albumin 3.3 L (3.5-5.0) g/dL
[2023-06-10] MEDS: POTASSIUM CHLORIDE ER 20 MEQ TAB.ER PO STA (13:21)
[2023-06-10] MEDS: SODIUM CHLORIDE 0.9% 1,000 ML IV SCH (21:37)
[2023-06-11] MEDS: HYDROcodone/APAP 5-325MG 1 EACH TAB PO PRN (09:58)
[2023-06-11] MEDS: ALPRAZolam 1 MG TAB PO STA (09:58)
--- NOTE | 2023-06-11 10:03 | P.DS ---
Providers Date of admission: 06/08/23 15:21 Expected date of discharge: 06/11/23 Attending physician: Kamala Quintanilla DO Primary care physician: Zuly [facility] Course: 47 year old M with PMH of HTN, hypothyroidism presents to the ED from [place]. He was sent from [place] due to intoxication. Reports drinking a 1/5th of hard liquid daily. Stressors include passing of his father and divorce within the last 3 years. He endorses h/o withdrawal symptoms but no seizures. He denies any other complaints. In the ED he underwent extensive evaluation. Vital signs stable besides HR 96. CBC RBC 4.24, Plt 107. CMP Na 136, Cl 97, glu 108, AST 121, ALT 56. Mag 1.7. Serum alcohol 383. Patient is admitted for alcohol intoxication with impending withdrawal. Started on CIWA protocol and given Ativan as needed. Started on Librium. 06/08 Patient was seen and examined. CIWA 5. He reports feeling shaky. Received Ativan 1 mg IV and Valium 5 mg over the past 24H. He appears shaky. BP is 157/102 HR 98 during the encounter. 06/09 Patient was seen and examined. Withdrawal symptoms well controlled. Complains of right ankle pain. He is medically stable for discharge today however there is paperwork from [place] that states he can return back to [place] on Sunday. BP 123/75 HR 91. CBC Hg 12.1 Hct 35.5 Plt 72. CMP Na 129, K 3.4, Cl 95, glu 104, T. Bili 1.4, alb 3.3. 06/10 Patient was seen and examined. CIWA 1. He does complains of neuropathy in both of his feet, we will start Lyrica 75 mg PO BID and consult PT. Reports some anxiety after mother visited, Xanax 1 mg PO x 1 ordered. No Ativan since 06/08. BMP is pending. Plans for [place] today. Vital signs reviewed General: non toxic, no distress, appears at stated age, normal weight Derm: no unusual rashes/lesions, warm Head: atraumatic, normocephalic, symmetric Eyes: EOMI, no lid lag, anicteric sclera ENT: Nose and ears atraumatic Neck: No cervical lymphadenopathy, trachea midline, supple Cardiovascular: S1S2 reg, no murmur Lungs: CTA bilateral, no rhonchi, no rales, no accessory muscle use Ext: muscle strength 4 out of 5 in all 4 extremities grossly, no gross muscle atrophy, no contractures, Neuro: no gross focal neuro deficits, generalized tremors Psych: Alert, oriented x 3 Discharge Diagnosis: Alcohol intoxication with impending withdrawal Hyponatremia Hypokalemia Hypertension Tachycardia Transaminits Thrombocytopenia Chronic conditions: Hypothyroidism This complex discharge took 35 minutes to complete. Patient Condition at Discharge: Stable Plan - Discharge Summary New Discharge Prescriptions: New Pregabalin [Lyrica] 75 mg PO BID #60 cap Thiamine [Vitamin B-1] 100 mg PO DAILY tab Continue Levothyroxine Sodium [Synthroid] 200 mcg PO DAILY amLODIPine BESYLATE/BENAZEPRIL [Lotrel 10-20 mg Capsule] 1 cap PO DAILY Discharge Medication List Levothyroxine Sodium [Synthroid] 200 mcg PO DAILY 10/15/22 [History] amLODIPine BESYLATE/BENAZEPRIL [Lotrel 10-20 mg Capsule] 1 cap PO DAILY 10/15/22 [History] Pregabalin [Lyrica] 75 mg PO BID #60 cap 06/11/23 [Rx] Thiamine [Vitamin B-1] 100 mg PO DAILY tab 06/11/23 [Rx] Follow up Appointment(s)/Referral(s): Zuly Sanders MD [Primary Care Provider] - 1-2 days Discharge Disposition: OTHER INSTITUTION NOT DEFINED
[2023-06-11] MEDS: PREGABALIN 75 MG CAP PO SCH (10:52)
[2023-06-11] MEDS: ACETAMINOPHEN TAB 325 MG TAB PO PRN (14:27)
[2023-06-11 14:50] LABS: African American GFR (CKD) >90 (>60 ml/min/1.73 sqM); Anion Gap 6 mmol/L; Blood Urea Nitrogen 10 mg/dL (9-20); Calcium 8.9 mg/dL (8.4-10.2); Carbon Dioxide 30 mmol/L (22-30); Chloride 98 mmol/L (98-107); Glucose 113 mg/dL (74-99); Non-African American GFR(CKD) 88 (>60 ml/min/1.73 sqM); Potassium 3.8 mmol/L (3.5-5.1); Sodium 134 mmol/L (137-145)
--- NOTE | 2023-06-11 17:03 | XR ---
EXAMINATION TYPE: XR chest 1V portable DATE OF EXAM: 06/11/2023 4:28 PM CLINICAL INDICATION:Male, 47 years old with history of fever; COMPARISON: None TECHNIQUE: XR chest 1V portable Frontal view of the chest. FINDINGS: Lungs/Pleura: There is no evidence of pleural effusion, focal consolidation, or pneumothorax. Pulmonary vascularity: Unremarkable. Heart/mediastinum: Cardiomediastinal silhouette is unremarkable. Musculoskeletal: No acute osseous pathology. Multiple left-sided rib fractures some which have calcif ication. IMPRESSION: 1. No acute cardiopulmonary disease/process. 2. Multiple left-sided rib fracture that appear subacute chronic. Correlate with history of trauma..
[2023-06-12 03:06] VITALS: PULSE 87
[2023-06-12 09:48] VITALS: BP 113/73; RESP 18; TEMP 98.2
--- NOTE | 2023-06-12 11:20 | P.DS ---
Providers Date of admission: 06/08/23 15:21 Expected date of discharge: 06/12/23 Attending physician: Kamala Quintanilla DO [facility] care [facility] Course: Discharge Diagnosis: Alcohol intoxication upon arrival Alcohol abuse with mild symptoms of withdrawal Multiple left-sided rib fractures, subacute chronic Hypertension Hypothyroidism Hospital Course: Patient is a pleasant 47-year-old male with a past medical history of hypertension, hypothyroidism, and daily alcohol abuse. He presented to our facility on 06/08/2023 from [facility] secondary to alcohol intoxication. Patient underwent full evaluation in our emergency department. Upon arrival vital signs as follows, blood pressure 124/79, heart rate 96, respiratory rate 20, temp 98.0 F, and SpO2 of 99% on room air. Labs were completed and reviewed. CBC showing thrombocytopenia with platelet count of 107. BMP showing mild hyponatremia with sodium 136 and hypochloremia with chloride of 97 otherwise normal findings. Liver profile showing elevated AST of 121 and ALT of 56 otherwise normal findings. Blood alcohol level was 383. Patient was admitted under our services for alcohol intoxication pending alcohol withdrawal and active alcoholic. Patient was provided with IV fluid hydration and placed on CIWA protocol with symptom triggered medication management with benzodiazepines for symptoms of alcohol withdrawal. Patient was medically cleared for discharge back to [facility] on 06/11/2023, however patient had isolated elevated temp of 100.6 F with no other complaints and a chest x-ray was completed. This chest x-ray revealed multiple left-sided rib fractures that were reported to be subacute chronic. Discussed these findings with patient, patient was aware of previous rib fractures and currently free from any other complaints. Patient had no further episodes of elevated temp. Isolated elevated temp believed to be signs/symptoms of alcohol withdrawal. Patient had no further episodes of elevated temps and is free from any complaints at this time. Patient is medically cleared to return to substance abuse treatment program at [facility]. Discussed with patient recommendations for use of incentive spirometry with known rib fractures and patient verbalized understanding. Patient medically cleared for discharge and to follow-up with PCP after discharge from inpatient substance abuse treatment facility. Physical exam: Patient seen and examined at bedside this morning. He currently denies having any needs, complaints, or concerns at this time. Discussed plans of care with patient regarding discharge back to [facility] for rehab. Also discussed findings of x-ray and recommendations for incentive spirometry. Vital signs reviewed and stable. Vital signs at time of discharge blood pressure 113/73, heart rate 87, respiratory rate 18, temp 98.2 F, and SpO2 of 100% on room air. General: Nontoxic, no distress and appears stated age. Derm: Skin warm and dry, normal coloration for ethnicity. Head: Atraumatic, normocephalic and symmetric. Eyes: EOMs intact, no lid lag, and anicteric sclera Mouth: no lip lesions, mucus membranes moist Cardiovascular: regular rate and rhythm with normal S1S2, no murmur, positive posterior tibial pulses bilaterally, and cap refill < 2 seconds. Lungs: Respirations even, regular, and unlabored on room air. Lungs CTA bilaterally, no rhonchi, no rales, no wheezing, and no accessory muscle usage. Abdominal: soft, nontender to palpation, no guarding, no appreciable organomegaly Ext: ROM intact. No gross muscle atrophy, no edema, no contractures Neuro: Speech clear, face symmetrical and CN II-XII grossly intact with no noted focal neuro deficits Psych: Alert and oriented to person, place, time, and situation. Appropriate and pleasant affect. A total of 33 minutes of time were spent preparing this complex discharge summar y. Pt was discharged on 06/12/2023 at 11:08 AM. Patient was seen independently by Nurse Practitioner. This document was prepared using [employer] dictation software. Please allow for errors in outside solar sales consultant while rare they do occur. Timothy Naylor NP rendered care for this patient independently, reviewed the findings and plan as documented in the note above. I did not physically speak with or examine the patient on this date. Patient Condition at Discharge: Stable Plan - Discharge Summary New Discharge Prescriptions: New Pregabalin [Lyrica] 75 mg PO BID #60 cap Thiamine [Vitamin B-1] 100 mg PO DAILY tab Continue Levothyroxine Sodium [Synthroid] 200 mcg PO DAILY amLODIPine BESYLATE/BENAZEPRIL [Lotrel 10-20 mg Capsule] 1 cap PO DAILY Discharge Medication List Levothyroxine Sodium [Synthroid] 200 mcg PO DAILY 10/15/22 [History] amLODIPine BESYLATE/BENAZEPRIL [Lotrel 10-20 mg Capsule] 1 cap PO DAILY 10/15/22 [History] Pregabalin [Lyrica] 75 mg PO BID #60 cap 06/11/23 [Rx] Thiamine [Vitamin B-1] 100 mg PO DAILY tab 06/11/23 [Rx] Follow up Appointment(s)/Referral(s): Zuly Sanders MD [Primary Care Provider] - 1-2 days Patient Instructions/Handouts: Abuse of Alcohol (DC), Alcohol Withdrawal (DC), Medical Clearance for Substance Abuse Treatment (DC) Activity/Diet/Wound Care/Special Instructions: Please call [facility] for transport back to rehab Activity: As tolerated. Take breaks as needed. Diet: Heart healthy and carb consistent diet. Avoid salts, or foods with hidden salts such as canned or boxed foods and frozen dinners. Extra salt makes your heart work harder and traps the fluid in your body for longer. Special Instructions: Take all of your medications as directed and remember to keep all of your doctor's appointments and follow-up as needed. As we discussed at bedside, chest x-ray did reveal some old left-sided rib fractures, recommending continued use of incentive spirometry. Thank you for allowing us to participate in your care, it was truly a pleasure having you for our patient!!! Discharge Disposition: OTHER INSTITUTION NOT DEFINED
== END 2023-06-12 15:20 | disposition home or self-care (01) ==
LOC: EC 10:58 → 6NMEDSUR 15:21
PROVIDERS: ADMIT Internal Medicine; ATTEND Internal Medicine
DX: F10.129 Alcohol abuse with intoxication, unspecified (principal); F10.139 Alcohol abuse with withdrawal, unspecified; E87.1 Hypo-osmolality and hyponatremia; E87.6 Hypokalemia; D69.6 Thrombocytopenia, unspecified; E03.9 Hypothyroidism, unspecified; I10 Essential (primary) hypertension; Z79.890 Hormone replacement therapy; E87.8 Other disorders of electrolyte and fluid balance, not elsewhere classified; R74.01 Elevation of levels of liver transaminase levels; S22.42XA Multiple fractures of ribs, left side, initial encounter for closed fracture; Y90.8 Blood alcohol level of 240 mg/100 ml or more; M25.571 Pain in right ankle and joints of right foot; S01.01XA Laceration without foreign body of scalp, initial encounter; F41.9 Anxiety disorder, unspecified; G62.9 Polyneuropathy, unspecified; Z79.899 Other long term (current) drug therapy; X58.XXXA Exposure to other specified factors, initial encounter
CPT/HCPCS: 96361 ×3; 96372 ×5; 96376; 82075; 96374; 96375; 99285; 36415; 97161; 80053 ×2; 80048; 83735; 85025; 85027; 71045; G0378 ×5; G0480; J2060 ×2; J3411; J3360; J1650 ×4; 80320